=== PATIENT | female | born 1985 | race Caucasian/White ===

== ENCOUNTER 2020-12-13 11:45 | Emergency (ER) | payer OTHER, MEDICAID, SELFPAY ==
[2020-12-13 11:48] VITALS: BP 151/98; PULSE 133; RESP 18; TEMP 35.9; O2SAT 96
[2020-12-13] MEDS: LORazepam 2 MG/ML INJ 0.5 MG IV ×2 (12:16→13:11)
[2020-12-13] MEDS: SODIUM CHLORIDE 0.9% 1,000 ML 1000 ML IV ×2 (12:16→13:41)
[2020-12-13] MEDS: ONDANSETRON 4 MG/2 ML INJ IV (12:16)
[2020-12-13 12:21] LABS: Add Manual Diff / Slide Review NO; Basophils Absolute Auto 100 /uL (0-100); Basophils Percent Auto 1.4 % (0-2); Eosinophils Absolute Auto 0 /uL (0-450); Eosinophils Percent Auto 0.1 % (2-4); Hematocrit 40.1 % (36-46); Hemoglobin 13.5 g/dL (12.0-16.0); Lymphocytes Absolute Auto 600 /uL (1100-4500); Lymphocytes Percent Auto 10.3 % (25-40); Mean Corpuscular HGB Conc 33.6 % (30-36); Mean Corpuscular Hemoglobin 33.5 PG (26-34); Mean Corpuscular Volume 99.8 fL (80-100); Monocytes Absolute Auto 300 /uL (0-900); Monocytes Percent Auto 5.8 % (3-14); Neutrophils Absolute Auto 4700 /uL (1500-7000); Neutrophils Percent Auto 82.4 % (50-75); Platelet Count 159 X10^3/uL (150-400); Red Blood Cell Count 4.02 X10^6/uL (4.0-5.2); Red Cell Distribution Width 13.3 % (11.6-14.8); White Blood Cell Count 5.7 X10^3/uL (4.5-11.0)
[2020-12-13 12:24] LABS: Alanine Aminotransferase 39 IU/L (<35); Albumin Globulin Ratio 1.5 (1.0-2.8); Alkaline Phosphatase 73 U/L (38-126); Aspartate Aminotransferase 132 IU/L (14-36); BUN Creatinine Ratio 22.2 (6-22); Bilirubin Total 0.7 mg/dL (0.2-1.3); Blood Urea Nitrogen 10 mg/dL (7-17); Calcium 8.7 mg/dL (8.4-10.2); Carbon Dioxide 25 mmol/L (22-32); Chloride 100 mmol/L (98-107); Estimated Glomerular Filt Rate > 60.0 mL/min (>60); Globulin 3.3 g/dL (1.7-4.1); Glucose 110 mg/dL (70-100); HEMOLYSIS 16 (0-50); Lipase 276 U/L (23-300); Potassium 3.6 mmol/L (3.4-5.1); Sodium 138 mmol/L (137-145); Total Protein 8.3 g/dL (6.3-8.2)
--- NOTE | 2020-12-13 13:29 | ED_ITS ---
HPI - Alcohol <Jeremias Valerio PA-C - Last Filed: 12/13/20 15:37> General Chief Complaint: Toxicology Problem Stated Complaint: Alcohol withdrawal Time Seen by Provider: 12/13/20 12:24 History of Present Illness HPI narrative: Brenda presents today with her mother for chief complaint of alcohol withdrawal. She reports that her last drink of alcohol was last night. She has been drinking approximately a half a 5th of vodka daily for the last few months. She is scheduled to go in to detox and rehab later this week to get clean. She reports feeling a bit jittery and nauseous. She denies any chest pain, difficulty breathing, abdominal pain, diarrhea, constipation, cough or any other acute concerns or complaints at this time. Related Data Previous Rx's Medication Instructions Recorded lorazepam 1 mg tablet 1 mg PO TID PRN #14 tab 12/13/20 Allergies Allergy/AdvReac Type Severity Reaction Status Date / Time No Known Drug Allergies Allergy Verified 12/13/20 11:51 Review of Systems <Jeremias Valerio PA-C - Last Filed: 12/13/20 15:37> Review of Systems Narrative: As per HPI Patient History <Jeremias Valerio PA-C - Last Filed: 12/13/20 15:37> Social History Smoking Status: Never smoker Smoking Status: Never smoker alcohol intake frequency: 3 or more drinks per day Substance Use Type: does not use Exam <Jeremias Valerio PA-C - Last Filed: 12/13/20 15:37> Narrative Exam Narrative: Exam Narrative: Const General: cooperative, healthy appearing, comfortable, no acute distress, well developed and well groomed Nutritional Appearance: average body habitus Orientation: alert and oriented x3 HENMT Head: normal to inspection and atraumatic Ears: hearing grossly normal bilaterally Nose: external nose normal and nares normal Face and sinus: normal facial exam Neck Neck: normal visual inspection and supple Resp Effort & Inspection: normal respiratory effort, able to speak in complete sentences, no audible wheezes, not labored, no nasal flaring and no respiratory distress, clear to auscultation Cardiac Tachycardic rate, regular rhythm, no murmurs, rubs, or gallops GI Normal bowel sounds, nontender to palpation, no masses noted Neuro General: alert, oriented x3, gait normal, tone normal and moves all extremities, mild tremors bilateral hands Cognition: normal cognition Speech: speech normal Gait: normal gait Psych Appearance: grossly normal and well kempt Mental Status: mental status grossly normal Speech and Movement: speech and movement normal Mood: congruent mood Affect: normal affect Initial Vital Signs Initial Vital Signs: Vital Signs Temperature 96.7 F L 12/13/20 11:48 Pulse Rate 133 H 12/13/20 11:48 Respiratory Rate 18 12/13/20 11:48 Blood Pressure 151/98 H 12/13/20 11:48 Pulse Oximetry 96 12/13/20 11:48 <Tri Hickey DO - Last Filed: 12/18/20 00:29> Initial Vital Signs Initial Vital Signs: Vital Signs Temperature 96.7 F L 12/13/20 11:48 Pulse Rate 133 H 12/13/20 11:48 Respiratory Rate 18 12/13/20 11:48 Blood Pressure 151/98 H 12/13/20 11:48 Pulse Oximetry 96 12/13/20 11:48 Course <Jeremias Valerio PA-C - Last Filed: 12/13/20 15:37> Orders Ordered: Discontinued Medications Sodium Chloride (Normal Saline 0.9%) 1,000 mls @ 1,000 mls/hr IV BOLUS ONE Stop: 12/13/20 13:05 Last Infusion: 12/13/20 13:30 Dose: 0 mls/hr Documented by: Admin: 12/13/20 12:16 Dose: 1,000 mls/hr Documented by: NERI Sodium Chloride (Normal Saline 0.9%) 1,000 mls @ 1,000 mls/hr IV BOLUS ONE Stop: 12/13/20 14:35 Last Infusion: 12/13/20 15:32 Dose: 0 mls/hr Documented by: Admin: 12/13/20 13:41 Dose: 1,000 mls/hr Documented by: AMY Lorazepam (Lorazepam 2 Mg/Ml Inj) 0.5 mg IV NOW ONE Stop: 12/13/20 12:07 Last Admin: 12/13/20 12:16 Dose: 0.5 mg Documented by: NERI Lorazepam (Lorazepam 2 Mg/Ml Inj) 0.5 mg IV NOW ONE Stop: 12/13/20 13:10 Last Admin: 12/13/20 13:11 Dose: 0.5 mg Documented by: AMY Lorazepam (Lorazepam 2 Mg/Ml Inj) 1 mg IV NOW ONE Stop: 12/13/20 14:25 Last Admin: 12/13/20 14:36 Dose: 1 mg Documented by: GAYLA Ondansetron HCl (Ondansetron 4 Mg/2 Ml Inj) 4 mg IV NOW ONE Stop: 12/13/20 12:06 Last Admin: 12/13/20 12:16 Dose: 4 mg Documented by: NERI Vital Signs Vital signs: Vital Signs - 8 hr 12/13/20 11:48 12/13/20 14:33 Temperature 96.7 F L Pulse Rate 133 H 107 H Respiratory Rate 18 22 Blood Pressure 151/98 H 132/78 Pulse Oximetry 96 96 <Tri Hickey DO - Last Filed: 12/18/20 00:29> Orders Ordered: Discontinued Medications Sodium Chloride (Normal Saline 0.9%) 1,000 mls @ 1,000 mls/hr IV BOLUS ONE Stop: 12/13/20 13:05 Last Infusion: 12/13/20 13:30 Dose: 0 mls/hr Documented by: Admin: 12/13/20 12:16 Dose: 1,000 mls/hr Documented by: NERI Sodium Chloride (Normal Saline 0.9%) 1,000 mls @ 1,000 mls/hr IV BOLUS ONE Stop: 12/13/20 14:35 Last Infusion: 12/13/20 15:32 Dose: 0 mls/hr Documented by: Admin: 12/13/20 13:41 Dose: 1,000 mls/hr Documented by: AMY Lorazepam (Lorazepam 2 Mg/Ml Inj) 0.5 mg IV NOW ONE Stop: 12/13/20 12:07 Last Admin: 12/13/20 12:16 Dose: 0.5 mg Documented by: NERI Lorazepam (Lorazepam 2 Mg/Ml Inj) 0.5 mg IV NOW ONE Stop: 12/13/20 13:10 Last Admin: 12/13/20 13:11 Dose: 0.5 mg Documented by: AMY Lorazepam (Lorazepam 2 Mg/Ml Inj) 1 mg IV NOW ONE Stop: 12/13/20 14:25 Last Admin: 12/13/20 14:36 Dose: 1 mg Documented by: GAYLA Ondansetron HCl (Ondansetron 4 Mg/2 Ml Inj) 4 mg IV NOW ONE Stop: 12/13/20 12:06 Last Admin: 12/13/20 12:16 Dose: 4 mg Documented by: NERI Vital Signs Vital signs: Vital Signs - 8 hr 12/13/20 11:48 12/13/20 14:33 Temperature 96.7 F L Pulse Rate 133 H 107 H Respiratory Rate 18 22 Blood Pressure 151/98 H 132/78 Pulse Oximetry 96 96 MDM - Alcohol <Jeremias Valerio PA-C - Last Filed: 12/13/20 15:37> Lab Data Result diagrams: 12/13/20 11:55 12/13/20 11:55 Labs: Lab Results 12/13/20 12/13/20 12/13/20 Range/Units 11:55 11:55 14:10 WBC 5.7 (4.5-11.0) X10^3/uL RBC 4.02 (4.0-5.2) X10^6/uL Hgb 13.5 (12.0-16.0) g/dL Hct 40.1 (36-46) % MCV 99.8 (80-100) fL MCH 33.5 (26-34) PG MCHC 33.6 (30-36) % RDW 13.3 (11.6-14.8) % Plt Count 159 (150-400) X10^3/uL Neut % (Auto) 82.4 H (50-75) % Lymph % (Auto) 10.3 L (25-40) % [place] % (Auto) 5.8 (3-14) % Eos % (Auto) 0.1 L (2-4) % Baso % (Auto) 1.4 (0-2) % Neut # (Auto) 4700 (7430-7591) /uL Lymph # (Auto) 600 L (6089-7980) /uL [place] # (Auto) 300 (0-900) /uL Eos # (Auto) 0 (0-450) /uL Baso # (Auto) 100 (0-100) /uL Sodium 138 (137-145) mmol/L Potassium 3.6 (3.4-5.1) mmol/L Chloride 100 (98-107) mmol/L Carbon Dioxide 25 (22-32) mmol/L BUN 10 (7-17) mg/dL Creatinine 0.45 L (0.52-1.04) mg/dL Estimated GFR > 60.0 (>60) mL/min BUN/Creatinine Ratio 22.2 H (6-22) Glucose 110 H (70-100) mg/dL Calcium 8.7 (8.4-10.2) mg/dL Total Bilirubin 0.7 (0.2-1.3) mg/dL AST 132 H (14-36) IU/L ALT 39 H (<35) IU/L Alkaline Phosphatase 73 (38-126) U/L Total Protein 8.3 H (6.3-8.2) g/dL Albumin 5.0 (3.5-5.0) g/dL Globulin 3.3 (1.7-4.1) g/dL Albumin/Globulin Ratio 1.5 (1.0-2.8) Lipase 276 (23-300) U/L Urine RBC 1-5/hpf (0-5/HPF) Urine WBC 0-1/hpf (0-5/HPF) Ur Squamous Epith Cells 1-5 /hpf (0-5/HPF) Amorphous Sediment 1+ Urine Bacteria None seen (None) Ur Culture Indicated? Cult not indicated Point of Care Testing Test Results Negative Urine Dip Bedside Urine Glucose Negative Bedside Urine Bilirubin - Negative Bedside Urine Ketone - Negative Urine Specific [place] 1.020 Bedside Urine Occult Blood +/- Bedside Urine pH 6.5 Bedside Urine Protein + 30 Bedside Urine Urobilinogen - Negative Bedside Urine Nitrite - Negative Bedside Urine Leukocytes - Negative Esterase MDM Narrative Medical decision making narrative: Patient is well-appearing at this time. She has bilateral upper extremity tremors. She initially presented with tachycardia but that improved with fluid. She does not have any history seizures and has never been hospitalized for alcohol withdrawal in the past. Long standing histo ry of alcohol abuse. She is already scheduled for outpatient rehabilitation and is starting on Tuesday. Her mother is here and is able to support here. We discussed either bring her in for detoxification or trialing outpatient. Patient would prefer doing outpatient detox at this time. Given her clinical appearance and history, I think that that is appropriate. Strict ER return precautions were discussed with the patient. Patient verbalizes understanding and agrees to plan and has no further concerns at this time. Thank you A [id number] system was used with the dictation of this note. Please disregard any spelling or grammatical errors. <Tri Hickey, DO - Last Filed: 12/18/20 00:29> Lab Data Labs: Lab Results 12/13/20 12/13/20 12/13/20 Range/Units 11:55 11:55 14:10 WBC 5.7 (4.5-11.0) X10^3/uL RBC 4.02 (4.0-5.2) X10^6/uL Hgb 13.5 (12.0-16.0) g/dL Hct 40.1 (36-46) % MCV 99.8 (80-100) fL MCH 33.5 (26-34) PG MCHC 33.6 (30-36) % RDW 13.3 (11.6-14.8) % Plt Count 159 (150-400) X10^3/uL Neut % (Auto) 82.4 H (50-75) % Lymph % (Auto) 10.3 L (25-40) % [place] % (Auto) 5.8 (3-14) % Eos % (Auto) 0.1 L (2-4) % Baso % (Auto) 1.4 (0-2) % Neut # (Auto) 4700 (3463-5166) /uL Lymph # (Auto) 600 L (0392-0991) /uL [place] # (Auto) 300 (0-900) /uL Eos # (Auto) 0 (0-450) /uL Baso # (Auto) 100 (0-100) /uL Sodium 138 (137-145) mmol/L Potassium 3.6 (3.4-5.1) mmol/L Chloride 100 (98-107) mmol/L Carbon Dioxide 25 (22-32) mmol/L BUN 10 (7-17) mg/dL Creatinine 0.45 L (0.52-1.04) mg/dL Estimated GFR > 60.0 (>60) mL/min BUN/Creatinine Ratio 22.2 H (6-22) Glucose 110 H (70-100) mg/dL Calcium 8.7 (8.4-10.2) mg/dL Total Bilirubin 0.7 (0.2-1.3) mg/dL AST 132 H (14-36) IU/L ALT 39 H (<35) IU/L Alkaline Phosphatase 73 (38-126) U/L Total Protein 8.3 H (6.3-8.2) g/dL Albumin 5.0 (3.5-5.0) g/dL Globulin 3.3 (1.7-4.1) g/dL Albumin/Globulin Ratio 1.5 (1.0-2.8) Lipase 276 (23-300) U/L Urine RBC 1-5/hpf (0-5/HPF) Urine WBC 0-1/hpf (0-5/HPF) Ur Squamous Epith Cells 1-5 /hpf (0-5/HPF) Amorphous Sediment 1+ Urine Bacteria None seen (None) Ur Culture Indicated? Cult not indicated Point of Care Testing Test Results Negative Urine Dip Bedside Urine Glucose Negative Bedside Urine Bilirubin - Negative Bedside Urine Ketone - Negative Urine Specific [place] 1.020 Bedside Urine Occult Blood +/- Bedside Urine pH 6.5 Bedside Urine Protein + 30 Bedside Urine Urobilinogen - Negative Bedside Urine Nitrite - Negative Bedside Urine Leukocytes - Negative Esterase Discharge Plan Departure Patient Disposition: Home Clinical Impression: Alcohol withdrawal syndrome Qualifiers: Complication of substance-induced condition: uncomplicated Qualified Code(s): F10.230 - Alcohol dependence with withdrawal, uncomplicated Instructions: DI for Alcohol Use Disorder, DI for Alcohol Poisoning Activity Restrictions/Additional Instructions: It was very nice to meet you this afternoon. Please use the provided medications to help with your withdrawal symptoms. Please stay well hydrated. If your symptoms worsen in any way do not hesitate to return here to the emergency department. I wish you the best of luck with your outpatient rehabilitation. Thank you Jeremias Valerio PA-C Prescriptions: New lorazepam 1 mg tablet 1 mg PO TID PRN (Reason: withdrawal symptoms) Qty: 14 RF: 0 Referrals: Miscellaneous,Doctor, [Primary Care Provider] - <Tri Hickey DO - Last Filed: 12/18/20 00:29> Cosign ED Attending Izzyature Attestation: I was immediately available in the department for consultation. Documentation has been reviewed.
[2020-12-13 14:10] LABS: Amorphous Sediment Urine 1+; Bacteria Urine None Seen; RBC Urine 1-5/HPF (0-5/HPF); Squamous Epithelial Cell Urine 1-5 /HPF (0-5/HPF); WBC Urine 0-1/HPF (0-5/HPF)
[2020-12-13 14:11] LABS: Culture Indicated Urine Cult Not Indicated
[2020-12-13 14:33] VITALS: BP 132/78; PULSE 107; RESP 22; O2SAT 96
[2020-12-13] MEDS: LORazepam 2 MG/ML INJ 1 MG IV (14:36)
== END 2020-12-13 15:36 | disposition home or self-care (01) ==
PROVIDERS: Emergency Provider Physician Assistant
DX: F10.230 Alcohol dependence with withdrawal, uncomplicated (principal); R11.0 Nausea
CPT/HCPCS: 36415; 80053; 81003; 81015; 81025; 83690; 85025; 96361; 96374; 96375; 96376; 99284; J2060; J2405

== ENCOUNTER 2021-02-14 13:31 | Emergency (ER) | payer OTHER, MEDICAID, SELFPAY ==
[2021-02-14 14:14] VITALS: BP 128/93; PULSE 127; RESP 18; TEMP 36.4; O2SAT 98; BMI 21.9
[2021-02-14 14:49] LABS: RBC Urine None Seen (0-5/HPF); WBC Urine 0-1/HPF (0-5/HPF)
[2021-02-14 14:50] LABS: Amorphous Sediment Urine 1+; Bacteria Urine None Seen; Culture Indicated Urine Cult Not Indicated
[2021-02-14 14:57] LABS: UR Morphine/Opiate cutoff 300 Negative (Negative); Ur Creatinine Normal (Normal); Ur Specific Gravity Normal (Normal); Urine Amphetamines Negative (Negative); Urine Barbiturates Negative (Negative); Urine Benzodiazepines Negative (Negative); Urine Cocaine Negative (Negative); Urine MDMA Negative (Negative); Urine Methadone Negative (Negative); Urine Methamphetamines Negative (Negative); Urine Oxycodone Negative (Negative); Urine Phencyclidine Negative (Negative); Urine Tetrahydrocannabinol Positive (Negative); Urine Tricyclic Antidepressant Negative (Negative); Urine pH Normal (Normal)
--- NOTE | 2021-02-14 16:12 | ED.ALCOHOL ---
HPI - Alcohol <HUNTER Lobo - Last Filed: 02/14/21 20:07> General Chief Complaint: Toxicology Problem Stated Complaint: in patient detox, Time Seen by Provider: 02/14/21 16:03 Source: patient Mode of arrival: Ambulatory History of Present Illness HPI narrative: 35-year-old female presents to the emergency department today seeking inpatient detox for alcohol abuse. Patient reports she drinks 1/5 of liquor each day, she is experiencing withdrawal at this time. She denies any history of seizures. She reports that she is anxious, shaky, and nauseated. She denies any pain, vomiting, or any other complaint at this time. She reports that she did drink this morning, does not remember what time her last drink was. Patient denies any fever, chest pain, shortness of breath, or any illness. Patient is seeking treatment for alcohol abuse and has been to inpatient treatment in the past. Any audiovisual hallucinations, denies any suicidal or homicidal ideation. Chronic alcohol use: Yes Previous visits for alcohol intoxication: Yes Recent trauma: No Related Data Previous Rx's Medication Instructions Recorded lorazepam 1 mg tablet 1 mg PO TID PRN #14 tab 12/13/20 Allergies Allergy/AdvReac Type Severity Reaction Status Date / Time No Known Drug Allergies Allergy Verified 02/14/21 14:18 Review of Systems <HUNTER Lobo - Last Filed: 02/14/21 20:07> Review of Systems Narrative: General: denies fever, chills, reports shaking, currently withdrawing, mildly anxious Head/Neck: denies headache, neck pain Eyes: denies visual changes, eye pain Cardio: denies chest pain, palpitations Respiratory: denies shortness of breath, cough GI: denies abdominal pain, vomiting, or diarrhea endorses mild nausea : denies dysuria, hematuria MSK: denies joint pain, muscle weakness Skin: denies rash, itching Neuro: denies numbness, tingling Patient History <HUNTER Lobo - Last Filed: 02/14/21 20:07> Social History Smoking Status: Never smoker Smoking Status: Never smoker alcohol intake frequency: 3 or more drinks per day Alcohol type: hard liquor Substance Use Type: marijuana Exam <HUNTER Lobo - Last Filed: 02/14/21 20:07> Narrative Exam Narrative: Independently reviewed vitals signs and nursing notes. General: Awake, alert, nontoxic, no cardiorespiratory distress, tremulous, Head/Neck: Atraumatic, neck full range of motion Eyes: EOMI, conjunctiva normal Nose: nares patent, no rhinorrhea Mouth/Throat: moist mucus membranes, posterior pharynx normal, no oral lesions Cardio: Sinus Tachycardia with regular rhythm, no peripheral edema patient's heart rate reduced after 1 L saline and p.o. fluids Respiratory: respirations unlabored without wheezing, stridor, or rales. No retractions. GI: Abdomen soft, nontender to palpation MSK: Moves all extremities, neurovascularly intact Skin: Normal capillary refill, no rash Neuro: Normal speech and cognition, normal gait Initial Vital Signs Initial Vital Signs: Vital Signs Temperature 97.6 F 02/14/21 14:14 Pulse Rate 127 H 02/14/21 14:14 Respiratory Rate 18 02/14/21 14:14 Blood Pressure 128/93 H 02/14/21 14:14 Pulse Oximetry 98 02/14/21 14:14 Course <HUNTER Lobo - Last Filed: 02/14/21 20:07> Orders Ordered: Discontinued Medications Sodium Chloride (Normal Saline 0.9%) 1,000 mls @ 1,000 mls/hr IV BOLUS PRN PRN Reason: Fluid replacement Last Infusion: 02/14/21 18:48 Dose: 0 mls/hr Documented by: Admin: 02/14/21 16:20 Dose: 1,000 mls/hr Documented by: AMY Lorazepam (Lorazepam 2 Mg/Ml Inj) 2 mg IV NOW ONE Stop: 02/14/21 16:08 Last Admin: 02/14/21 16:20 Dose: 2 mg Documented by: AMY Lorazepam (Lorazepam 2 Mg/Ml Inj) 2 mg IV Q1H PRN PRN Reason: Alcohol Withdrawal Multivitamins (Multivitamin 1 Tablet) 1 tab PO NOW ONE Stop: 02/14/21 16:08 Last Admin: 02/14/21 16:21 Dose: 1 tab Documented by: AMY Ondansetron HCl (Ondansetron 4 Mg/2 Ml Inj) 4 mg IV NOW ONE Stop: 02/14/21 16:15 Last Admin: 02/14/21 16:20 Dose: 4 mg Documented by: AMY Vital Signs Vital signs: Vital Signs - 8 hr 02/14/21 14:14 02/14/21 18:48 Temperature 97.6 F Pulse Rate 127 H 107 H Respiratory Rate 18 Blood Pressure 128/93 H 122/71 Pulse Oximetry 98 97 MDM - Alcohol <HUNTER Lobo - Last Filed: 02/14/21 20:07> Lab Data Result diagrams: 02/14/21 16:00 02/14/21 16:00 Labs: Lab Results 02/14/21 02/14/21 02/14/21 Range/Units 13:48 13:48 16:00 WBC 4.8 (4.5-11.0) X10^3/uL RBC 4.15 (4.0-5.2) X10^6/uL Hgb 14.4 (12.0-16.0) g/dL Hct 42.9 (36-46) % MCV 103.5 H (80-100) fL MCH 34.8 H (26-34) PG MCHC 33.6 (30-36) % RDW 15.1 H (11.6-14.8) % Plt Count 155 (150-400) X10^3/uL Neut % (Auto) 85.7 H (50-75) % Lymph % (Auto) 10.6 L (25-40) % [place] % (Auto) 2.9 L (3-14) % Eos % (Auto) 0.0 L (2-4) % Baso % (Auto) 0.8 (0-2) % Neut # (Auto) 4200 (1701-4842) /uL Lymph # (Auto) 500 L (1166-5179) /uL [place] # (Auto) 100 (0-900) /uL Eos # (Auto) 0 (0-450) /uL Baso # (Auto) 0 (0-100) /uL Sodium (137-145) mmol/L Potassium (3.4-5.1) mmol/L Chloride (98-107) mmol/L Carbon Dioxide (22-32) mmol/L BUN (7-17) mg/dL Creatinine (0.52-1.04) mg/dL Estimated GFR (>60) mL/min BUN/Creatinine Ratio (6-22) Glucose (70-100) mg/dL Calcium (8.4-10.2) mg/dL Total Bilirubin (0.2-1.3) mg/dL AST (14-36) IU/L ALT (<35) IU/L Alkaline Phosphatase (38-126) U/L Total Protein (6.3-8.2) g/dL Albumin (3.5-5.0) g/dL Globulin (1.7-4.1) g/dL Albumin/Globulin Ratio (1.0-2.8) TSH (0.47-4.68) uIU/mL Free T4 (0.78-2.19) ng/dL Urine RBC None seen (0-5/HPF) Urine WBC 0-1/hpf (0-5/HPF) Amorphous Sediment 1+ Urine Bacteria None seen (None) Ur Culture Indicated? Cult not indicated Salicylates (<20) mg/dL U Opiates 300ng/mL cut Negative (Negative) Ur Oxycodone Screen Negative (Negative) Urine Methadone Screen Negative (Negative) Acetaminophen (10-30) ug/mL Ur Barbiturates Screen Negative (Negative) U Tricyclic Antidepress Negative (Negative) Ur Phencyclidine Scrn Negative (Negative) Ur Amphetamines Screen Negative (Negative) U Methamphetamines Scrn Negative (Negative) Ur MDMA Scrn (Ecstasy) Negative (Negative) U Benzodiazepines Scrn Negative (Negative) Urine Cocaine Screen Negative (Negative) U Marijuana (THC) Screen Positive H (Negative) Ethyl Alcohol ( - 10) mg/dL SARS-CoV-2 (PCR) (Negative) 02/14/21 02/14/21 02/14/21 Range/Units 16:00 16:00 16:00 WBC (4.5-11.0) X10^3/uL RBC (4.0-5.2) X10^6/uL Hgb (12.0-16.0) g/dL Hct (36-46) % MCV (80-100) fL MCH (26-34) PG MCHC (30-36) % RDW (11.6-14.8) % Plt Count (150-400) X10^3/uL Neut % (Auto) (50-75) % Lymph % (Auto) (25-40) % [place] % (Auto) (3-14) % Eos % (Auto) (2-4) % Baso % (Auto) (0-2) % Neut # (Auto) (1469-5153) /uL Lymph # (Auto) (2288-9882) /uL [place] # (Auto) (0-900) /uL Eos # (Auto) (0-450) /uL Baso # (Auto) (0-100) /uL Sodium 141 (137-145) mmol/L Potassium 4.8 (3.4-5.1) mmol/L Chloride 103 (98-107) mmol/L Carbon Dioxide 11 L (22-32) mmol/L BUN 15 (7-17) mg/dL Creatinine 0.69 (0.52-1.04) mg/dL Estimated GFR > 60.0 (>60) mL/min BUN/Creatinine Ratio 21.7 (6-22) Glucose 69 L (70-100) mg/dL Calcium 9.3 (8.4-10.2) mg/dL Total Bilirubin 0.8 (0.2-1.3) mg/dL AST 169 H (14-36) IU/L ALT 32 (<35) IU/L Alkaline Phosphatase 77 (38-126) U/L Total Protein 9.5 H (6.3-8.2) g/dL Albumin 5.5 H (3.5-5.0) g/dL Globulin 4.0 (1.7-4.1) g/dL Albumin/Globulin Ratio 1.4 (1.0-2.8) TSH 1.03 (0.47-4.68) uIU/mL Free T4 0.73 L (0.78-2.19) ng/dL Urine RBC (0-5/HPF) Urine WBC (0-5/HPF) Amorphous Sediment Urine Bacteria (None) Ur Culture Indicated? Salicylates < 1.0 (<20) mg/dL U Opiates 300ng/mL cut (Negative) Ur Oxycodone Screen (Negative) Urine Methadone Screen (Negative) Acetaminophen < 10 L (10-30) ug/mL Ur Barbiturates Screen (Negative) U Tricyclic Antidepress (Negative) Ur Phencyclidine Scrn (Negative) Ur Amphetamines Screen (Negative) U Methamphetamines Scrn (Negative) Ur MDMA Scrn (Ecstasy) (Negative) U Benzodiazepines Scrn (Negative) Urine Cocaine Screen (Negative) U Marijuana (THC) Screen (Negative) Ethyl Alcohol 254 H ( - 10) mg/dL SARS-CoV-2 (PCR) Negative (Negative) Point of Care Testing Glucose POC 71 Urine Dip Bedside Urine Glucose Negative Bedside Urine Bilirubin - Negative Bedside Urine Ketone +++ 80 Urine Specific [employer] 1.030 Bedside Urine Occult Blood +++ Bedside Urine pH 6.0 Bedside Urine Protein +++ 300 Bedside Urine Urobilinogen - Negative Bedside Urine Nitrite - Negative Bedside Urine Leukocytes - Negative Esterase MDM Narrative Medical decision making narrative: 35-year-old female presented to the emergency department seeking medical clearance for inpatient detox for alcohol abuse. Patient presented in alcohol withdrawal with moderate tremors, level is 254, drug screen was positive for THC, COVID test was negative on PCR, no other findings on her toxicology screening, lab work was relatively unremarkable otherwise, no electrolyte abnormalities, her glucose was 69 initially but patient was able to drink 2 cups of apple juice, kept it down, and tolerated p.o. fluids afterwards. Her AST was 169 today on previous exam in December it was 130 edema. UA was negative for bacteria. At this point patient is clinically sober, appropriate for admission to inpatient detox, her tremors are markedly improved, patient is no longer nauseated, she is comfortable and at baseline for herself. Patient received a total of 2 mg of lorazepam while she was in the emergency department and did not develop any worsening of her alcohol withdrawal symptoms. She was alert and oriented for her stay, did not have any audiovisual hallucinations, was cooperative, pleasant, and seeking alcohol treatment. Discharge Plan Departure Patient Disposition: Home Clinical Impression: Alcohol withdrawal syndrome Instructions: DI for Alcohol Use Disorder Activity Restrictions/Additional Instructions: *You have been diagnosed with alcohol use disorder with alcohol withdrawal. Please go to inpatient detox as arranged for you, this can help save your life and get you on the right track to health. It was a pleasure to meet you, I hope that you feel better, please try and eat something before going. *What to do: *Please continue to take your regular medications as directed. [ ] New medication prescriptions sent to your pharmacy: [ ] [ ] New medication written as a paper prescription [x ] No new medications given *Please follow up with your primary care provider in 2-3 days, call for an appointment. Let them know you were seen in the Emergency Department and that we ask that you be seen in follow up. We will electronically transmit a record of today's note if your PCP is in our system *If you do not have a primary care provider please contact the [facility] Resource line at [phone]. They will ask some questions about your medical history and help get you set up with a doctor in the community. *Return to Emergency Department if you should have any new, worsening or concerning symptoms, such as [fever greater than 101F, chills, worsening pain, persistent vomiting or other bothersome symptoms] Prescriptions: No Action lorazepam 1 mg tablet 1 mg PO TID PRN (Reason: withdrawal symptoms) Qty: 14 0RF Referrals: Miscellaneous,Doctor, MD [Primary Care Provider] -
[2021-02-14 16:15] LABS: Add Manual Diff / Slide Review NO; Basophils Absolute Auto 0 /uL (0-100); Basophils Percent Auto 0.8 % (0-2); Eosinophils Absolute Auto 0 /uL (0-450); Hematocrit 42.9 % (36-46); Hemoglobin 14.4 g/dL (12.0-16.0); Lymphocytes Absolute Auto 500 /uL (1100-4500); Lymphocytes Percent Auto 10.6 % (25-40); Mean Corpuscular HGB Conc 33.6 % (30-36); Mean Corpuscular Hemoglobin 34.8 PG (26-34); Mean Corpuscular Volume 103.5 fL (80-100); Monocytes Absolute Auto 100 /uL (0-900); Monocytes Percent Auto 2.9 % (3-14); Neutrophils Absolute Auto 4200 /uL (1500-7000); Neutrophils Percent Auto 85.7 % (50-75); Platelet Count 155 X10^3/uL (150-400); Red Blood Cell Count 4.15 X10^6/uL (4.0-5.2); Red Cell Distribution Width 15.1 % (11.6-14.8); White Blood Cell Count 4.8 X10^3/uL (4.5-11.0)
[2021-02-14] MEDS: ONDANSETRON 4 MG/2 ML INJ IV (16:20)
[2021-02-14] MEDS: SODIUM CHLORIDE 0.9% 1,000 ML 1000 ML IV (16:20)
[2021-02-14] MEDS: LORazepam 2 MG/ML INJ IV (16:20)
[2021-02-14] MEDS: MULTIVITAMIN 1 TABLET 1 TAB PO (16:21)
[2021-02-14 16:28] LABS: Acetaminophen < 10 ug/mL (10-30); Alanine Aminotransferase 32 IU/L (<35); Albumin 5.5 g/dL (3.5-5.0); Albumin Globulin Ratio 1.4 (1.0-2.8); Alkaline Phosphatase 77 U/L (38-126); Aspartate Aminotransferase 169 IU/L (14-36); BUN Creatinine Ratio 21.7 (6-22); Bilirubin Total 0.8 mg/dL (0.2-1.3); Blood Urea Nitrogen 15 mg/dL (7-17); Calcium 9.3 mg/dL (8.4-10.2); Carbon Dioxide 11 mmol/L (22-32); Chloride 103 mmol/L (98-107); Estimated Glomerular Filt Rate > 60.0 mL/min (>60); Ethanol (ETOH) 254 mg/dL; Glucose 69 mg/dL (70-100); HEMOLYSIS 22 (0-50); Potassium 4.8 mmol/L (3.4-5.1); Salicylate < 1.0 mg/dL (<20); Sodium 141 mmol/L (137-145); Total Protein 9.5 g/dL (6.3-8.2)
[2021-02-14 16:44] LABS: Free T4, Direct Thyroxine 0.73 ng/dL (0.78-2.19)
[2021-02-14 16:58] LABS: Thyroid Stimulating Hormone 1.03 uIU/mL (0.47-4.68)
[2021-02-14 17:17] LABS: COVID19 - ADMIT (NP swab/PCR) Negative (Negative)
[2021-02-14 18:48] VITALS: BP 122/71; PULSE 107; O2SAT 97
== END 2021-02-14 18:49 | disposition home or self-care (01) ==
PROVIDERS: Emergency Medicine; Emergency Provider Nurse Practitioner Critical Care Medicine
DX: F10.239 Alcohol dependence with withdrawal, unspecified (principal); Y90.8 Blood alcohol level of 240 mg/100 ml or more; Z20.822 Contact with and (suspected) exposure to COVID-19
CPT/HCPCS: 36415; 80053; 80305; 80320; 80329; 81003; 81015; 82962; 84439; 84443; 85025; 87635; 96361; 96374; 96375; 99284; C9803; G0480; J2060; J2405

== ENCOUNTER 2021-03-29 13:13 | Emergency (ER) | payer OTHER, MEDICAID, SELFPAY ==
[2021-03-29] VITALS (31 sets, daily range): BP systolic 114–169; BP diastolic 63–81; PULSE 85–125; RESP 16–24; TEMP 36.1; O2SAT 90–98
--- NOTE | 2021-03-29 14:33 | ED.GENADULT ---
HPI - General Adult <Skylar Yoo MD - Last Filed: 04/05/21 06:33> General Chief complaint: Toxicology Problem Stated complaint: Withdrawls Time Seen by Provider: 03/29/21 13:33 Source: patient and family Mode of arrival: Ambulatory History of Present Illness HPI narrative: 35-year-old woman with significant alcohol use disorder presents with signs and symptoms of significant withdrawal requesting help with her physical symptoms as well as consideration for detox. She has been having issues in trying to stop drinking for a number of months now with 6 visits to various emergency departments in the last 4 months. She has had to detox days but has not recently done any inpatient treatment. She has had the 30 day treatment previously. She describes drinking a 5th of whiskey a day. She is accompanied by her significant other. She describes no additional drug use. She states that she just finished her last menstrual cycle. At this point she is having significant withdrawal symptoms with significant vomiting and tremor. She is not having any hallucinations at this time. She describes mild diffuse abdominal pain subtle headache. She denies overt chest pain palpitations. Related Data Previous Rx's Medication Instructions Recorded lorazepam 1 mg tablet 1 mg PO TID PRN #14 tab 12/13/20 Allergies Allergy/AdvReac Type Severity Reaction Status Date / Time No Known Drug Allergies Allergy Verified 02/14/21 14:18 Review of Systems <Skylar Yoo MD - Last Filed: 04/05/21 06:33> Review of Systems Narrative: Remainder of complete review of systems is otherwise unremarkable except for that included in the HPI. Patient History <Skylar Yoo MD - Last Filed: 04/05/21 06:33> Medical History (Updated 03/29/21 @ 15:08 by Skylar Yoo MD) Alcohol use disorder Social History Smoking Status: Never smoker Smoking Status: Never smoker alcohol intake frequency: 3 or more drinks per day Alcohol type: hard liquor Substance Use Type: marijuana Exam <Skylar Yoo MD - Last Filed: 04/05/21 06:33> Initial Vital Signs Initial Vital Signs: Vital Signs Temperature 97.0 F L 03/29/21 13:23 Pulse Rate 103 H 03/29/21 13:23 Respiratory Rate 24 03/29/21 13:23 Blood Pressure 124/75 03/29/21 13:23 Pulse Oximetry 97 03/29/21 13:23 General: In significant alcohol withdrawal, chronically ill-appearing. Able to give a complete and coherent history. HEENT: drt mucous membranes, normal sclera with reactive pupils, Respiratory: Lungs are clear to auscultation, no wheezing no rales no rhonchi. Full and symmetrical air movement Cardiac: Tachycardic but otherwise Regular rate and rhythm no murmurs no bruits Abdomen: Soft, mild diffuse tenderness without rebound or guarding, good bowel tones, no flank pain Skin: Pale, spider angiomas appreciated Neurologic: Significant tremor but cognitively appropriate and moving all extremities Extremities: No trauma, no lower extremity edema Psych: Cooperative, appropriate insight and affect, no auditory or visual hallucinations CIWA=16 on initial exam Course <Skylar Yoo MD - Last Filed: 04/05/21 06:33> Orders Ordered: Discontinued Medications Sodium Chloride (Normal Saline 0.9%) 1,000 mls @ 1,000 mls/hr IV BOLUS ONE Stop: 03/29/21 15:22 Last Infusion: 03/29/21 15:46 Dose: 1,000 mls/hr Documented by: [email or web address] Admin: 03/29/21 14:38 Dose: 1,000 mls/hr Documented by: [email or web address] Thiamine HCl 100 mg/ Dextrose 51 mls @ 204 mls/hr IV NOW ONE Stop: 03/29/21 14:24 Last Infusion: 03/29/21 15:48 Dose: 0 mls/hr Documented by: [email or web address] Admin: 03/29/21 15:19 Dose: 204 mls/hr Documented by: [email or web address] Lorazepam (Lorazepam 2 Mg/Ml Inj) 2 mg IV NOW ONE Stop: 03/29/21 14:24 Last Admin: 03/29/21 14:38 Dose: 2 mg Documented by: [email or web address] Lorazepam (Lorazepam 2 Mg/Ml Inj) 2 mg IV NOW ONE Stop: 03/29/21 15:14 Last Admin: 03/29/21 15:19 Dose: 2 mg Documented by: [email or web address] Lorazepam (Lorazepam 2 Mg/Ml Inj) 1 mg IV NOW ONE Stop: 03/29/21 21:10 Last Admin: 03/29/21 21:13 Dose: 1 mg Documented by: NICHOLAS Metoclopramide HCl (Metoclopramide 10 Mg/2 Ml Inj) 10 mg IV NOW ONE Stop: 03/29/21 14:29 Last Admin: 03/29/21 14:38 Dose: 10 mg Documented by: NLOOSE Vital Signs Vital signs: Vital Signs - 8 hr 03/29/21 16:18 03/29/21 16:30 03/29/21 16:45 Pulse Rate 99 H 94 H 94 H Respiratory Rate 22 20 17 Blood Pressure 114/64 116/63 117/67 Pulse Oximetry 96 94 96 03/29/21 17:00 03/29/21 17:15 03/29/21 17:30 Pulse Rate 101 H 93 H 95 H Respiratory Rate 22 20 21 Blood Pressure 115/65 122/68 120/73 Pulse Oximetry 96 96 96 03/29/21 17:45 03/29/21 18:00 03/29/21 18:15 Pulse Rate 94 H 95 H 95 H Respiratory Rate 17 17 17 Blood Pressure 119/73 121/72 125/76 Pulse Oximetry 97 94 97 03/29/21 18:31 03/29/21 18:37 03/29/21 19:00 Pulse Rate 125 H 100 H 92 H Respiratory Rate 23 16 17 Blood Pressure 118/69 Pulse Oximetry 90 L 96 97 03/29/21 19:30 03/29/21 20:00 03/29/21 20:30 Pulse Rate 95 H 93 H 92 H Respiratory Rate 19 17 18 Blood Pressure Pulse Oximetry 97 95 96 03/29/21 21:00 03/29/21 21:30 03/29/21 22:00 Pulse Rate 93 H 96 H 94 H Respiratory Rate 19 18 20 Blood Pressure Pulse Oximetry 96 96 97 03/29/21 22:02 03/29/21 22:03 03/29/21 22:30 Pulse Rate 96 H 96 H 99 H Respiratory Rate 20 17 17 Blood Pressure 124/81 124/81 Pulse Oximetry 96 98 97 Medical Decision Making <Skylar Yoo MD - Last Filed: 04/05/21 06:33> Lab Data Result diagrams: 03/29/21 13:55 03/29/21 13:55 Labs: Lab Results 03/29/21 03/29/21 03/29/21 Range/Units 13:55 13:55 15:06 WBC 5.6 (4.5-11.0) X10^3/uL RBC 3.81 L (4.0-5.2) X10^6/uL Hgb 13.5 (12.0-16.0) g/dL Hct 39.7 (36-46) % MCV 104.3 H (80-100) fL MCH 35.4 H (26-34) PG MCHC 33.9 (30-36) % RDW 14.1 (11.6-14.8) % Plt Count 192 (150-400) X10^3/uL Neut % (Auto) 90.8 H (50-75) % Lymph % (Auto) 4.9 L (25-40) % [place] % (Auto) 2.5 L (3-14) % Eos % (Auto) 0.1 L (2-4) % Baso % (Auto) 1.7 (0-2) % Neut # (Auto) 5100 (4037-1284) /uL Lymph # (Auto) 300 L (7998-8957) /uL [place] # (Auto) 100 (0-900) /uL Eos # (Auto) 0 (0-450) /uL Baso # (Auto) 100 (0-100) /uL Sodium 140 (137-145) mmol/L Potassium 4.1 (3.4-5.1) mmol/L Chloride 102 (98-107) mmol/L Carbon Dioxide 15 L (22-32) mmol/L BUN 14 (7-17) mg/dL Creatinine 0.65 (0.52-1.04) mg/dL Estimated GFR > 60.0 (>60) mL/min BUN/Creatinine Ratio 21.5 (6-22) Glucose 70 (70-100) mg/dL Calcium 9.0 (8.4-10.2) mg/dL Magnesium 1.9 (1.6-2.3) mg/dL Total Bilirubin 1.0 (0.2-1.3) mg/dL AST 190 H (14-36) IU/L ALT 58 H (<35) IU/L Alkaline Phosphatase 64 (38-126) U/L Total Protein 9.0 H (6.3-8.2) g/dL Albumin 5.3 H (3.5-5.0) g/dL Globulin 3.7 (1.7-4.1) g/dL Albumin/Globulin Ratio 1.4 (1.0-2.8) Lipase 227 (23-300) U/L Urine Color Urine Appearance Urine pH (4.5-8.0) Ur Specific [place] (1.000-1.035) Urine Protein (Negative) Urine Glucose (UA) (Negative) g/dL Urine Ketones (NEGATIVE) Urine Occult Blood (Negative) Urine Nitrate (Negative) Urine Bilirubin (NEGATIVE) Urine Urobilinogen (0.2) E.U./dL Ur Leukocyte Esterase (NEGATIVE) Urine RBC (0-5/HPF) Urine WBC (0-5/HPF) Ur Squamous Epith Cells (0-5/HPF) Urine Bacteria (None) Ur Culture Indicated? U Opiates 300ng/mL cut (Negative) Ur Oxycodone Screen (Negative) Urine Methadone Screen (Negative) Ur Barbiturates Screen (Negative) U Tricyclic Antidepress (Negative) Ur Phencyclidine Scrn (Negative) Ur Amphetamines Screen (Negative) U Methamphetamines Scrn (Negative) Ur MDMA Scrn (Ecstasy) (Negative) U Benzodiazepines Scrn (Negative) Urine Cocaine Screen (Negative) U Marijuana (THC) Screen (Negative) Ethyl Alcohol 62 H ( - 10) mg/dL SARS-CoV-2 (PCR) Negative (Negative) 03/29/21 03/29/21 Range/Units 19:23 19:23 WBC (4.5-11.0) X10^3/uL RBC (4.0-5.2) X10^6/uL Hgb (12.0-16.0) g/dL Hct (36-46) % MCV (80-100) fL MCH (26-34) PG MCHC (30-36) % RDW (11.6-14.8) % Plt Count (150-400) X10^3/uL Neut % (Auto) (50-75) % Lymph % (Auto) (25-40) % [place] % (Auto) (3-14) % Eos % (Auto) (2-4) % Baso % (Auto) (0-2) % Neut # (Auto) (2954-5225) /uL Lymph # (Auto) (7367-4203) /uL [place] # (Auto) (0-900) /uL Eos # (Auto) (0-450) /uL Baso # (Auto) (0-100) /uL Sodium (137-145) mmol/L Potassium (3.4-5.1) mmol/L Chloride (98-107) mmol/L Carbon Dioxide (22-32) mmol/L BUN (7-17) mg/dL Creatinine (0.52-1.04) mg/dL Estimated GFR (>60) mL/min BUN/Creatinine Ratio (6-22) Glucose (70-100) mg/dL Calcium (8.4-10.2) mg/dL Magnesium (1.6-2.3) mg/dL Total Bilirubin (0.2-1.3) mg/dL AST (14-36) IU/L ALT (<35) IU/L Alkaline Phosphatase (38-126) U/L Total Protein (6.3-8.2) g/dL Albumin (3.5-5.0) g/dL Globulin (1.7-4.1) g/dL Albumin/Globulin Ratio (1.0-2.8) Lipase (23-300) U/L Urine Color Yellow Urine Appearance Clear Urine pH 5.5 (4.5-8.0) Ur Specific [place] >=1.030 H (1.000-1.035) Urine Protein 2+ H (Negative) Urine Glucose (UA) Trace H (Negative) g/dL Urine Ketones 3+ H (NEGATIVE) Urine Occult Blood 3+ H (Negative) Urine Nitrate Negative (Negative) Urine Bilirubin Negative (NEGATIVE) Urine Urobilinogen 0.2 (0.2) E.U./dL Ur Leukocyte Esterase Negative (NEGATIVE) Urine RBC 1-5/hpf (0-5/HPF) Urine WBC 1-5/hpf (0-5/HPF) Ur Squamous Epith Cells 1-5 /hpf (0-5/HPF) Urine Bacteria None seen (None) Ur Culture Indicated? Cult not indicated U Opiates 300ng/mL cut Negative (Negative) Ur Oxycodone Screen Negative (Negative) Urine Methadone Screen Negative (Negative) Ur Barbiturates Screen Negative (Negative) U Tricyclic Antidepress Negative (Negative) Ur Phencyclidine Scrn Negative (Negative) Ur Amphetamines Screen Negative (Negative) U Methamphetamines Scrn Negative (Negative) Ur MDMA Scrn (Ecstasy) Negative (Negative) U Benzodiazepines Scrn Positive H (Negative) Urine Cocaine Screen Negative (Negative) U Marijuana (THC) Screen Positive H (Negative) Ethyl Alcohol ( - 10) mg/dL SARS-CoV-2 (PCR) (Negative) Point of Care Testing Test Results Negative Urine Dip Bedside Urine Glucose Negative Bedside Urine Bilirubin - Negative Bedside Urine Ketone +++ 80 Urine Specific Hutch[place] 1.030 Bedside Urine Occult Blood +++ Bedside Urine pH 6.0 Bedside Urine Protein ++ 100 Bedside Urine Urobilinogen - Negative Bedside Urine Nitrite - Negative Bedside Urine Leukocytes - Negative Esterase Point of care testing: Point of Care Testing Test Results Negative Urine Dip Bedside Urine Glucose Negative Bedside Urine Bilirubin - Negative Bedside Urine Ketone +++ 80 Urine Specific [place] 1.030 Bedside Urine Occult Blood +++ Bedside Urine pH 6.0 Bedside Urine Protein ++ 100 Bedside Urine Urobilinogen - Negative Bedside Urine Nitrite - Negative Bedside Urine Leukocytes - Negative Esterase MDM Narrative Medical decision making narrative: 35-year-old patient with an ongoing history of alcohol use disorder who has been trying to quit over the last number of months. She comes in today looking for help with detox. Last drink was at 8:00 p.m. last night and blood alcohol level is at 67 this morning. Initial CIWA score was 16. Responded nicely to IV Ativan. She is re-evaluated at 3:00 p.m.. She is medically cleared at this point and still quite interested in going to detox. Will administer additional Ativan due to her continued symptoms. In admit COVID swab will be obtained. Talked with social work and they will contact rehab facility on [facility] to see if they have availability at this time. Has responded nicely to an additional 2 mg of Ativan. Is calling to do intake screening at [facility] Discharge Plan Departure Patient Disposition: Home Clinical Impression: Alcohol use disorder Activity Restrictions/Additional Instructions: Please present directly [facility] They are expecting you Prescriptions: No Action lorazepam 1 mg tablet 1 mg PO TID PRN (Reason: withdrawal symptoms) Qty: 14 0RF Referrals: Miscellaneous,DoctorMD [Primary Care Provider] - ED Sign-out <Skylar Yoo MD - Last Filed: 04/05/21 06:33> Cosign ED Attending Cosignature Attestation: I was immediately available in the department for consultation throughout this patient's visit. I agree with documentation as above. Skylar Yoo MD
[2021-03-29] MEDS: SODIUM CHLORIDE 0.9% 1,000 ML 1000 ML IV (14:38)
[2021-03-29] MEDS: LORazepam 2 MG/ML INJ IV ×2 (14:38→15:19)
[2021-03-29] MEDS: METOCLOPRAMIDE 10 MG/2 ML INJ IV (14:38)
[2021-03-29 14:40] LABS: Add Manual Diff / Slide Review NO; Basophils Absolute Auto 100 /uL (0-100); Basophils Percent Auto 1.7 % (0-2); Eosinophils Absolute Auto 0 /uL (0-450); Eosinophils Percent Auto 0.1 % (2-4); Hematocrit 39.7 % (36-46); Hemoglobin 13.5 g/dL (12.0-16.0); Lymphocytes Absolute Auto 300 /uL (1100-4500); Lymphocytes Percent Auto 4.9 % (25-40); Mean Corpuscular HGB Conc 33.9 % (30-36); Mean Corpuscular Hemoglobin 35.4 PG (26-34); Mean Corpuscular Volume 104.3 fL (80-100); Monocytes Absolute Auto 100 /uL (0-900); Monocytes Percent Auto 2.5 % (3-14); Neutrophils Absolute Auto 5100 /uL (1500-7000); Neutrophils Percent Auto 90.8 % (50-75); Platelet Count 192 X10^3/uL (150-400); Red Blood Cell Count 3.81 X10^6/uL (4.0-5.2); Red Cell Distribution Width 14.1 % (11.6-14.8); White Blood Cell Count 5.6 X10^3/uL (4.5-11.0)
[2021-03-29 14:48] LABS: Alanine Aminotransferase 58 IU/L (<35); Albumin 5.3 g/dL (3.5-5.0); Albumin Globulin Ratio 1.4 (1.0-2.8); Alkaline Phosphatase 64 U/L (38-126); Aspartate Aminotransferase 190 IU/L (14-36); BUN Creatinine Ratio 21.5 (6-22); Blood Urea Nitrogen 14 mg/dL (7-17); Carbon Dioxide 15 mmol/L (22-32); Chloride 102 mmol/L (98-107); Estimated Glomerular Filt Rate > 60.0 mL/min (>60); Ethanol (ETOH) 62 mg/dL; Globulin 3.7 g/dL (1.7-4.1); Glucose 70 mg/dL (70-100); HEMOLYSIS < 15 (0-50); Lipase 227 U/L (23-300); Magnesium 1.9 mg/dL (1.6-2.3); Potassium 4.1 mmol/L (3.4-5.1); Sodium 140 mmol/L (137-145)
[2021-03-29] MEDS: THIAMINE 100 MG in DEXTROSE 5 % IN WATER 50 ML 204 ML IV (15:19)
--- NOTE | 2021-03-29 15:28 | CM.SWNOTE ---
Patient is a 35 yo female who was admitted to [facility] ED on 03/29/21 for ETOH withdrawal. Pt has [employer] for insurance. Per ED MD, pt with hx of ETOH and seeking detox tx and requests [employer] Consult to help find detox for pt although pt requesting a different detox other than [facility] in [place]. SW called [facility] in [place] [phone] and confirmed they have a female detox bed available right now and they request pt call for phone intake and then fax medical clinicals to review prior to accepting. Due to time constraits of shift almost over, [employer] unable to meet bedside with pt for assessment but provided above information to ED RN, ED MD, and [facility] and they kindly will help pt make call to [facility] for intake and [facility] [employer] agreeable to fax clinicals for review if pt agreeable with [facility] after intake. MARISOL Lucero
--- NOTE | 2021-03-29 15:41 | PC.NURSE ---
Patient had a phone assessment with [facility] treatment facility in [place]. [phone]. [facility] requested medical records, which have been sent to fax [phone]. Stated that they would call back in 1-2 hours after a nurse reviewed the assessment information. Provider is aware of pending status.
[2021-03-29 15:51] LABS: COVID19 - ADMIT (NP swab/PCR) Negative (Negative)
--- NOTE | 2021-03-29 19:58 | PC.NURSE ---
pt resting quietly call vanegas in reach
[2021-03-29 20:39] LABS: Appearance Urine UA CLEAR; Bilirubin Urine UA NEGATIVE (NEGATIVE); Color Urine UA YELLOW; Glucose Urine UA TRACE g/dL (Negative); Ketones Urine UA 3+ (NEGATIVE); Leukocyte Esterase Urine UA NEGATIVE (NEGATIVE); Nitrite Urine UA NEGATIVE (Negative); Occult Blood Urine UA 3+ (Negative); Protein Urine UA 2+ (Negative); Specific Gravity Urine UA >=1.030 (1.000-1.035); Urobilinogen Urine UA 0.2 E.U./dL (0.2)
[2021-03-29 20:40] LABS: pH Urine UA 5.5 (4.5-8.0)
[2021-03-29 20:43] LABS: UR Morphine/Opiate cutoff 300 Negative (Negative); Ur Creatinine Normal (Normal); Ur Specific Gravity Normal (Normal); Urine Amphetamines Negative (Negative); Urine Barbiturates Negative (Negative); Urine Benzodiazepines Positive (Negative); Urine Cocaine Negative (Negative); Urine MDMA Negative (Negative); Urine Methadone Negative (Negative); Urine Methamphetamines Negative (Negative); Urine Oxycodone Negative (Negative); Urine Phencyclidine Negative (Negative); Urine Tetrahydrocannabinol Positive (Negative); Urine Tricyclic Antidepressant Negative (Negative); Urine pH Normal (Normal)
[2021-03-29 20:48] LABS: Bacteria Urine None Seen; Culture Indicated Urine Cult Not Indicated; RBC Urine 1-5/HPF (0-5/HPF); Squamous Epithelial Cell Urine 1-5 /HPF (0-5/HPF); WBC Urine 1-5/HPF (0-5/HPF)
[2021-03-29] MEDS: LORazepam 2 MG/ML INJ 1 MG IV (21:13)
--- NOTE | 2021-03-29 21:22 | PC.NURSE ---
updated pt on plan SO to come about 2229 to pick pt up to take her to rehab, pt verbalized understanding
--- NOTE | 2021-03-29 22:46 | PC.NURSE ---
pt ambulatory to bathroom without assistance waiting for ride
== END 2021-03-29 23:46 | disposition home or self-care (01) ==
PROVIDERS: Emergency Medicine; Emergency Provider Emergency Medicine
DX: F10.129 Alcohol abuse with intoxication, unspecified (principal); Y90.3 Blood alcohol level of 60-79 mg/100 ml; Z20.822 Contact with and (suspected) exposure to COVID-19
CPT/HCPCS: 36415; 80053; 80305; 80320; 81001; 81003; 81025; 83690; 83735; 85025; 87635; 96365; 96375; 96376; 99284; C9803; J2060; J2765

== ENCOUNTER 2022-08-16 19:05 | Observation (INO) | payer OTHER, MEDICAID, SELFPAY ==
[2022-08-16] VITALS (11 sets, daily range): BP systolic 100–129; BP diastolic 69–90; PULSE 93–120; RESP 18–21; TEMP 37.1; O2SAT 95–100; BMI 21.0
--- NOTE | 2022-08-16 20:27 | ED_ITS ---
HPI - General Adult <Chris Wheeler DO - Last Filed: 08/17/22 17:58> General Chief complaint: Toxicology Problem Stated complaint: ALCOHOL WITHDRAWEL Time Seen by Provider: 08/16/22 20:19 Source: patient and family Mode of arrival: Wheelchair History of Present Illness HPI narrative: Patient is a 36-year-old female. Who has a known history of alcohol abuse. Has withdrawn from alcohol in the past. Has had seizure activity because of alcohol withdrawal in the past. Was recently at [facility] for alcohol intoxication and wanting detox however after sobering up in the emergency department the patient left without going to detox or rehab. She is here with her mother and boyfriend. She did come voluntarily this evening. She does drink a 5th of whiskey on a daily basis. Her last drink was just prior to coming here to the ER. Patient is seeking help with alcohol abuse. Denies any other symptoms. Related Data Previous Rx's Medication Instructions Recorded lorazepam 1 mg tablet 1 mg PO TID PRN withdrawal 12/13/20 symptoms #14 tabs Allergies Allergy/AdvReac Type Severity Reaction Status Date / Time No Known Drug Allergies Allergy Verified 08/16/22 19:20 Review of Systems <Chris Wheeler DO - Last Filed: 08/17/22 17:58> Cardiovascular Cardiovascular: Denies chest pain and Denies dyspnea Respiratory Respiratory: Denies dyspnea Gastrointestinal Gastrointestinal: Denies abdominal pain, Denies nausea and Denies vomiting Patient History <Chris Wheeler DO - Last Filed: 08/17/22 17:58> Medical History Alcohol use disorder Social History household members: family Smoking Status: Current some day smoker alcohol intake: current Smoking Status: Current some day smoker tobacco type: vaping alcohol intake frequency: 3 or more drinks per day Alcohol type: hard liquor Substance Use Type: does not use and former substance user Exam <DO Roderick Gonzalez Last Filed: 08/17/22 17:58> Initial Vital Signs Initial Vital Signs: Vital Signs Temperature 98.8 F 08/16/22 19:17 Pulse Rate 120 H 08/16/22 19:17 Respiratory Rate 18 08/16/22 19:17 Blood Pressure 124/87 08/16/22 19:17 Pulse Oximetry 95 08/16/22 19:17 Oxygen Delivery Method Room Air 08/16/22 19:17 Const General: cooperative and No ill appearing HENMT Head: normal to inspection and normocephalic Resp Effort & Inspection: normal respiratory effort Cardio Rate: regular rate GI Inspection: non-distended Extrem General: normal to inspection Psych Other: Patient is cooperative but is obviously intoxicated <Flory Corrigan, DO - Last Filed: 08/17/22 19:05> Initial Vital Signs Initial Vital Signs: Vital Signs Temperature 98.8 F 08/16/22 19:17 Pulse Rate 120 H 08/16/22 19:17 Respiratory Rate 18 08/16/22 19:17 Blood Pressure 124/87 08/16/22 19:17 Pulse Oximetry 95 08/16/22 19:17 Oxygen Delivery Method Room Air 08/16/22 19:17 Course <Chris Wheeler, DO - Last Filed: 08/17/22 17:58> Orders Ordered: Discontinued Medications Acetaminophen (Acetaminophen 325 Mg Tablet) 650 mg PO Q6H PRN PRN Reason: Fever/Mild Pain (1-3) Enoxaparin Sodium (Enoxaparin 40 Mg/0.4 Ml Syringe) 40 mg SUBCUT DAILY [facility] Last Admin: 08/17/22 12:10 Dose: 40 mg Documented By: JOSE JUAN Folic Acid (Folic Acid 1 Mg Tablet) 1 mg PO DAILY [facility] Last Admin: 08/17/22 12:10 Dose: 1 mg Documented By: JOSE JUAN Sodium Chloride (Normal Saline 0.9%) 1,000 mls @ 1,000 mls/hr IV BOLUS ONE Stop: 08/16/22 21:26 Last Infusion: 08/16/22 22:25 Dose: 0 mls/hr Documented By: Admin: 08/16/22 20:35 Dose: 1,000 mls/hr Documented By: Sodium Chloride (Normal Saline 0.9%) 1,000 mls @ 1,000 mls/hr IV BOLUS ONE Stop: 08/17/22 09:49 Last Infusion: 08/17/22 10:51 Dose: 0 mls/hr Documented By: Admin: 08/17/22 08:55 Dose: 1,000 mls/hr Documented By: LALA Sodium Chloride (Normal Saline 0.9%) 1,000 mls @ 100 mls/hr IV CONT JOANNE Stop: 08/17/22 22:44 Last Admin: 08/17/22 11:20 Dose: 100 mls/hr Documented By: JOSE JUAN Lorazepam (Lorazepam 2 Mg/Ml Inj) 1 mg IV NOW ONE Stop: 08/16/22 23:17 Last Admin: 08/16/22 23:20 Dose: 1 mg Documented By: STEPHANIE Lorazepam (Lorazepam 2 Mg/Ml Inj) 1 mg IV NOW ONE Stop: 08/17/22 01:47 Last Admin: 08/17/22 01:50 Dose: 1 mg Documented By: STEPHANIE Lorazepam (Lorazepam 2 Mg/Ml Inj) 2 mg IV NOW ONE Stop: 08/17/22 08:07 Last Admin: 08/17/22 08:21 Dose: 2 mg Documented By: LALA Lorazepam (Lorazepam 2 Mg/Ml Inj) 0 mg IV CIWAPRN PRN; Protocol PRN Reason: Alcohol Withdrawal Last Admin: 08/17/22 13:41 Dose: 1 mg Documented By: JOSE JUAN Lorazepam (Lorazepam 1 Mg Tablet) 0 mg PO CIWAPRN PRN; Protocol PRN Reason: Alcohol Withdrawal Melatonin (Melatonin 3 Mg Tablet) 6 mg PO BEDTIME PRN PRN Reason: Insomnia Multivitamins (Multivitamin 1 Tablet) 1 tab PO DAILY [facility] Last Admin: 08/17/22 12:10 Dose: 1 tab Documented By: JOSE JUAN Naloxone HCl (Naloxone 0.4 Mg/Ml Vial) 0.2 mg IV Q2MIN PRN PRN Reason: Opiate Reversal Ondansetron HCl (Ondansetron 4 Mg/2 Ml Inj) 4 mg IV NOW ONE Stop: 08/16/22 22:41 Last Admin: 08/16/22 22:45 Dose: 4 mg Documented By: STEPHANIE Ondansetron HCl (Ondansetron 4 Mg/2 Ml Inj) 4 mg IV NOW ONE Stop: 08/17/22 05:11 Last Admin: 08/17/22 05:22 Dose: 4 mg Documented By: KEN Ondansetron HCl (Ondansetron 4 Mg/2 Ml Inj) 4 mg IV NOW ONE Stop: 08/17/22 08:07 Last Admin: 08/17/22 08:21 Dose: 4 mg Documented By: LALA Ondansetron HCl (Ondansetron 4 Mg/2 Ml Inj) 4 mg IV Q4HR [facility] Last Admin: 08/17/22 13:06 Dose: 4 mg Documented By: JOSE JUAN Phenobarbital (Phenobarbital 65 Mg/Ml Vial) 260 mg IV NOW ONE Stop: 08/16/22 20:21 Last Admin: 08/16/22 20:35 Dose: 260 mg Documented By: Polyethylene Glycol (Polyethylene Glycol 3350 17 Gm Powd.Pack) 17 gm PO DAILY PRN PRN Reason: Constipation Sennosides (Sennosides 8.6 Mg Tablet) 8.6 mg PO BID PRN PRN Reason: Constipation Thiamine HCl (Thiamine 100 Mg Tablet) 100 mg PO DAILY JOANNE Stop: 08/20/22 09:01 Last Admin: 08/17/22 12:10 Dose: 100 mg Documented By: JOSE JUAN Vital Signs Vital signs: Vital Signs - 8 hr 08/17/22 10:00 08/17/22 10:00 08/17/22 10:30 Pulse Rate 119 H 106 H Respiratory Rate 20 21 Blood Pressure 116/75 <Flory Corrigan DO - Last Filed: 08/17/22 19:05> Orders Ordered: Discontinued Medications Acetaminophen (Acetaminophen 325 Mg Tablet) 650 mg PO Q6H PRN PRN Reason: Fever/Mild Pain (1-3) Enoxaparin Sodium (Enoxaparin 40 Mg/0.4 Ml Syringe) 40 mg SUBCUT DAILY [facility] Last Admin: 08/17/22 12:10 Dose: 40 mg Documented By: JOSE JUAN Folic Acid (Folic Acid 1 Mg Tablet) 1 mg PO DAILY [facility] Last Admin: 08/17/22 12:10 Dose: 1 mg Documented By: JOSE JUAN Sodium Chloride (Normal Saline 0.9%) 1,000 mls @ 1,000 mls/hr IV BOLUS ONE Stop: 08/16/22 21:26 Last Infusion: 08/16/22 22:25 Dose: 0 mls/hr Documented By: Admin: 08/16/22 20:35 Dose: 1,000 mls/hr Documented By: Sodium Chloride (Normal Saline 0.9%) 1,000 mls @ 1,000 mls/hr IV BOLUS ONE Stop: 08/17/22 09:49 Last Infusion: 08/17/22 10:51 Dose: 0 mls/hr Documented By: Admin: 08/17/22 08:55 Dose: 1,000 mls/hr Documented By: LALA Sodium Chloride (Normal Saline 0.9%) 1,000 mls @ 100 mls/hr IV CONT JOANNE Stop: 08/17/22 22:44 Last Admin: 08/17/22 11:20 Dose: 100 mls/hr Documented By: JOSE JUAN Lorazepam (Lorazepam 2 Mg/Ml Inj) 1 mg IV NOW ONE Stop: 08/16/22 23:17 Last Admin: 08/16/22 23:20 Dose: 1 mg Documented By: STEPHANIE Lorazepam (Lorazepam 2 Mg/Ml Inj) 1 mg IV NOW ONE Stop: 08/17/22 01:47 Last Admin: 08/17/22 01:50 Dose: 1 mg Documented By: STEPHANIE Lorazepam (Lorazepam 2 Mg/Ml Inj) 2 mg IV NOW ONE Stop: 08/17/22 08:07 Last Admin: 08/17/22 08:21 Dose: 2 mg Documented By: LALA Lorazepam (Lorazepam 2 Mg/Ml Inj) 0 mg IV CIWAPRN PRN; Protocol PRN Reason: Alcohol Withdrawal Last Admin: 08/17/22 13:41 Dose: 1 mg Documented By: JOSE JUAN Lorazepam (Lorazepam 1 Mg Tablet) 0 mg PO CIWAPRN PRN; Protocol PRN Reason: Alcohol Withdrawal Melatonin (Melatonin 3 Mg Tablet) 6 mg PO BEDTIME PRN PRN Reason: Insomnia Multivitamins (Multivitamin 1 Tablet) 1 tab PO DAILY [facility] Last Admin: 08/17/22 12:10 Dose: 1 tab Documented By: JOSE JUAN Naloxone HCl (Naloxone 0.4 Mg/Ml Vial) 0.2 mg IV Q2MIN PRN PRN Reason: Opiate Reversal Ondansetron HCl (Ondansetron 4 Mg/2 Ml Inj) 4 mg IV NOW ONE Stop: 08/16/22 22:41 Last Admin: 08/16/22 22:45 Dose: 4 mg Documented By: STEPHANIE Ondansetron HCl (Ondansetron 4 Mg/2 Ml Inj) 4 mg IV NOW ONE Stop: 08/17/22 05:11 Last Admin: 08/17/22 05:22 Dose: 4 mg Documented By: KEN Ondansetron HCl (Ondansetron 4 Mg/2 Ml Inj) 4 mg IV NOW ONE Stop: 08/17/22 08:07 Last Admin: 08/17/22 08:21 Dose: 4 mg Documented By: LALA Ondansetron HCl (Ondansetron 4 Mg/2 Ml Inj) 4 mg IV Q4HR [facility] Last Admin: 08/17/22 13:06 Dose: 4 mg Documented By: JOSE JUAN Phenobarbital (Phenobarbital 65 Mg/Ml Vial) 260 mg IV NOW ONE Stop: 08/16/22 20:21 Last Admin: 08/16/22 20:35 Dose: 260 mg Documented By: Polyethylene Glycol (Polyethylene Glycol 3350 17 Gm Powd.Pack) 17 gm PO DAILY PRN PRN Reason: Constipation Sennosides (Sennosides 8.6 Mg Tablet) 8.6 mg PO BID PRN PRN Reason: Constipation Thiamine HCl (Thiamine 100 Mg Tablet) 100 mg PO DAILY [facility] Stop: 08/20/22 09:01 Last Admin: 08/17/22 12:10 Dose: 100 mg Documented By: JOSE JUAN Vital Signs Vital signs: Vital Signs - 8 hr 08/17/22 10:00 08/17/22 10:00 08/17/22 10:30 Pulse Rate 119 H 106 H Respiratory Rate 20 21 Blood Pressure 116/75 Medical Decision Making <Chris Wheeler DO - Last Filed: 08/17/22 17:58> Lab Data Lab results reviewed: Yes I reviewed the patient's lab results. 08/16/22 19:47 08/16/22 19:47 Labs: Lab Results 08/16/22 08/16/22 08/16/22 Range/Units 19:40 19:47 19:47 WBC 9.4 (4.5-11.0) X10^3/uL RBC 4.43 (4.0-5.2) X10^6/uL Hgb 14.2 (12.0-16.0) g/dL Hct 42.2 (36-46) % MCV 95.2 (80-100) fL MCH 32.0 (26-34) PG MCHC 33.6 (30-36) % RDW 14.3 (11.6-14.8) % Plt Count 240 (150-400) X10^3/uL Neut % (Auto) 88.9 H (50-75) % Lymph % (Auto) 8.9 L (25-40) % [place] % (Auto) 1.8 L (3-14) % Eos % (Auto) 0.0 L (2-4) % Baso % (Auto) 0.4 (0-2) % Neut # (Auto) 8400 H (7021-9894) /uL Lymph # (Auto) 800 L (5329-2261) /uL [place] # (Auto) 200 (0-900) /uL Eos # (Auto) 0 (0-450) /uL Baso # (Auto) 0 (0-100) /uL Clumped Platelets RBC Morphology Normal morphology Sodium 136 L (137-145) mmol/L Potassium 4.4 (3.4-5.1) mmol/L Chloride 97 L (98-107) mmol/L Carbon Dioxide 12 L (22-32) mmol/L BUN 17 (7-17) mg/dL Creatinine 0.56 (0.52-1.04) mg/dL Estimated GFR > 60 (>60) mL/min BUN/Creatinine Ratio 30.4 H (6-22) Glucose 72 (70-100) mg/dL Calcium 8.1 L (8.4-10.2) mg/dL Magnesium (1.6-2.3) mg/dL Total Bilirubin 1.6 H (0.2-1.3) mg/dL AST 209 H (14-36) IU/L ALT 108 H (<35) IU/L Alkaline Phosphatase 67 (38-126) U/L Total Protein 9.0 H (6.3-8.2) g/dL Albumin 5.1 H (3.5-5.0) g/dL Globulin 3.9 (1.7-4.1) g/dL Albumin/Globulin Ratio 1.3 (1.0-2.8) Lipase 626 H (23-300) U/L TSH (0.47-4.68) uIU/mL HCG, Quant 8.3 mIU/mL Serum , Qual (Negative) U Opiates 300ng/mL cut (Negative) Ur Oxycodone Screen (Negative) Urine Methadone Screen (Negative) Ur Barbiturates Screen (Negative) U Tricyclic Antidepress (Negative) Ur Phencyclidine Scrn (Negative) Ur Amphetamines Screen (Negative) U Methamphetamines Scrn (Negative) Ur MDMA Scrn (Ecstasy) (Negative) U Benzodiazepines Scrn (Negative) Urine Cocaine Screen (Negative) U Marijuana (THC) Screen (Negative) Ethyl Alcohol ( - 10) mg/dL Blood Type 08/16/22 08/16/22 08/16/22 Range/Units 19:47 21:18 21:18 WBC (4.5-11.0) X10^3/uL RBC (4.0-5.2) X10^6/uL Hgb (12.0-16.0) g/dL Hct (36-46) % MCV (80-100) fL MCH (26-34) PG MCHC (30-36) % RDW (11.6-14.8) % Plt Count (150-400) X10^3/uL Neut % (Auto) (50-75) % Lymph % (Auto) (25-40) % [place] % (Auto) (3-14) % Eos % (Auto) (2-4) % Baso % (Auto) (0-2) % Neut # (Auto) (8385-0129) /uL Lymph # (Auto) (4499-4453) /uL [place] # (Auto) (0-900) /uL Eos # (Auto) (0-450) /uL Baso # (Auto) (0-100) /uL Clumped Platelets RBC Morphology Sodium (137-145) mmol/L Potassium (3.4-5.1) mmol/L Chloride (98-107) mmol/L Carbon Dioxide (22-32) mmol/L BUN (7-17) mg/dL Creatinine (0.52-1.04) mg/dL Estimated GFR (>60) mL/min BUN/Creatinine Ratio (6-22) Glucose (70-100) mg/dL Calcium (8.4-10.2) mg/dL Magnesium (1.6-2.3) mg/dL Total Bilirubin (0.2-1.3) mg/dL AST (14-36) IU/L ALT (<35) IU/L Alkaline Phosphatase (38-126) U/L Total Protein (6.3-8.2) g/dL Albumin (3.5-5.0) g/dL Globulin (1.7-4.1) g/dL Albumin/Globulin Ratio (1.0-2.8) Lipase (23-300) U/L TSH (0.47-4.68) uIU/mL HCG, Quant mIU/mL Serum , Qual Positive H (Negative) U Opiates 300ng/mL cut (Negative) Ur Oxycodone Screen (Negative) Urine Methadone Screen (Negative) Ur Barbiturates Screen (Negative) U Tricyclic Antidepress (Negative) Ur Phencyclidine Scrn (Negative) Ur Amphetamines Screen (Negative) U Methamphetamines Scrn (Negative) Ur MDMA Scrn (Ecstasy) (Negative) U Benzodiazepines Scrn (Negative) Urine Cocaine Screen (Negative) U Marijuana (THC) Screen (Negative) Ethyl Alcohol 375 H ( - 10) mg/dL Blood Type O Positive 08/17/22 08/17/22 08/17/22 Range/Units 02:50 06:43 06:43 WBC (4.5-11.0) X10^3/uL RBC (4.0-5.2) X10^6/uL Hgb (12.0-16.0) g/dL Hct (36-46) % MCV (80-100) fL MCH (26-34) PG MCHC (30-36) % RDW (11.6-14.8) % Plt Count (150-400) X10^3/uL Neut % (Auto) (50-75) % Lymph % (Auto) (25-40) % [place] % (Auto) (3-14) % Eos % (Auto) (2-4) % Baso % (Auto) (0-2) % Neut # (Auto) (8409-7321) /uL Lymph # (Auto) (4042-5565) /uL [place] # (Auto) (0-900) /uL Eos # (Auto) (0-450) /uL Baso # (Auto) (0-100) /uL Clumped Platelets RBC Morphology Sodium (137-145) mmol/L Potassium (3.4-5.1) mmol/L Chloride (98-107) mmol/L Carbon Dioxide (22-32) mmol/L BUN (7-17) mg/dL Creatinine (0.52-1.04) mg/dL Estimated GFR (>60) mL/min BUN/Creatinine Ratio (6-22) Glucose (70-100) mg/dL Calcium (8.4-10.2) mg/dL Magnesium 1.7 (1.6-2.3) mg/dL Total Bilirubin (0.2-1.3) mg/dL AST (14-36) IU/L ALT (<35) IU/L Alkaline Phosphatase (38-126) U/L Total Protein (6.3-8.2) g/dL Albumin (3.5-5.0) g/dL Globulin (1.7-4.1) g/dL Albumin/Globulin Ratio (1.0-2.8) Lipase (23-300) U/L TSH (0.47-4.68) uIU/mL HCG, Quant mIU/mL Serum , Qual (Negative) U Opiates 300ng/mL cut Negative (Negative) Ur Oxycodone Screen Negative (Negative) Urine Methadone Screen Negative (Negative) Ur Barbiturates Screen Negative (Negative) U Tricyclic Antidepress Negative (Negative) Ur Phencyclidine Scrn Negative (Negative) Ur Amphetamines Screen Negative (Negative) U Methamphetamines Scrn Negative (Negative) Ur MDMA Scrn (Ecstasy) Negative (Negative) U Benzodiazepines Scrn Negative (Negative) Urine Cocaine Screen Negative (Negative) U Marijuana (THC) Screen Negative (Negative) Ethyl Alcohol 174 H ( - 10) mg/dL Blood Type 08/17/22 Range/Units 06:43 WBC (4.5-11.0) X10^3/uL RBC (4.0-5.2) X10^6/uL Hgb (12.0-16.0) g/dL Hct (36-46) % MCV (80-100) fL MCH (26-34) PG MCHC (30-36) % RDW (11.6-14.8) % Plt Count (150-400) X10^3/uL Neut % (Auto) (50-75) % Lymph % (Auto) (25-40) % [place] % (Auto) (3-14) % Eos % (Auto) (2-4) % Baso % (Auto) (0-2) % Neut # (Auto) (9599-7802) /uL Lymph # (Auto) (4776-9837) /uL [place] # (Auto) (0-900) /uL Eos # (Auto) (0-450) /uL Baso # (Auto) (0-100) /uL Clumped Platelets RBC Morphology Sodium (137-145) mmol/L Potassium (3.4-5.1) mmol/L Chloride (98-107) mmol/L Carbon Dioxide (22-32) mmol/L BUN (7-17) mg/dL Creatinine (0.52-1.04) mg/dL Estimated GFR (>60) mL/min BUN/Creatinine Ratio (6-22) Glucose (70-100) mg/dL Calcium (8.4-10.2) mg/dL Magnesium (1.6-2.3) mg/dL Total Bilirubin (0.2-1.3) mg/dL AST (14-36) IU/L ALT (<35) IU/L Alkaline Phosphatase (38-126) U/L Total Protein (6.3-8.2) g/dL Albumin (3.5-5.0) g/dL Globulin (1.7-4.1) g/dL Albumin/Globulin Ratio (1.0-2.8) Lipase (23-300) U/L TSH 2.47 (0.47-4.68) uIU/mL HCG, Quant mIU/mL Serum , Qual (Negative) U Opiates 300ng/mL cut (Negative) Ur Oxycodone Screen (Negative) Urine Methadone Screen (Negative) Ur Barbiturates Screen (Negative) U Tricyclic Antidepress (Negative) Ur Phencyclidine Scrn (Negative) Ur Amphetamines Screen (Negative) U Methamphetamines Scrn (Negative) Ur MDMA Scrn (Ecstasy) (Negative) U Benzodiazepines Scrn (Negative) Urine Cocaine Screen (Negative) U Marijuana (THC) Screen (Negative) Ethyl Alcohol ( - 10) mg/dL Blood Type MDM Narrative Medical decision making narrative: Patient was here voluntarily but is intoxicated. Was given phenobarbital upon arrival. Her labs then resulted showing a positive serum test. Her hCG quantitative level was less than 10. Patient was intoxicated and also very somnolent so I opted to wait on telling the patient of the positive test and obtaining an ultrasound until the patient britta up and can have a coherent conversation. Patient did have a couple episodes of nausea. Has rec eived a couple doses of Ativan which does seem to keep her symptoms under control. This morning patient states she is feeling somewhat better but is very sleepy. She is still tachycardic. Occasionally is having nausea. Is more alert this morning. I did talk with her about her positive test. She states that she has been 1 time in the past. That was approximately 3 months ago. States this ended in a miscarriage. Advised that we obtain an ultrasound for further evaluation. She expressed understanding and agreement. Care turned over to day provider to continue to observe until disposition. <Flory Corrigan, DO - Last Filed: 08/17/22 19:05> Lab Data Labs: Lab Results 08/16/22 08/16/22 08/16/22 Range/Units 19:40 19:47 19:47 WBC 9.4 (4.5-11.0) X10^3/uL RBC 4.43 (4.0-5.2) X10^6/uL Hgb 14.2 (12.0-16.0) g/dL Hct 42.2 (36-46) % MCV 95.2 (80-100) fL MCH 32.0 (26-34) PG MCHC 33.6 (30-36) % RDW 14.3 (11.6-14.8) % Plt Count 240 (150-400) X10^3/uL Neut % (Auto) 88.9 H (50-75) % Lymph % (Auto) 8.9 L (25-40) % [place] % (Auto) 1.8 L (3-14) % Eos % (Auto) 0.0 L (2-4) % Baso % (Auto) 0.4 (0-2) % Neut # (Auto) 8400 H (1344-2591) /uL Lymph # (Auto) 800 L (2229-5897) /uL [place] # (Auto) 200 (0-900) /uL Eos # (Auto) 0 (0-450) /uL Baso # (Auto) 0 (0-100) /uL Clumped Platelets RBC Morphology Normal morphology Sodium 136 L (137-145) mmol/L Potassium 4.4 (3.4-5.1) mmol/L Chloride 97 L (98-107) mmol/L Carbon Dioxide 12 L (22-32) mmol/L BUN 17 (7-17) mg/dL Creatinine 0.56 (0.52-1.04) mg/dL Estimated GFR > 60 (>60) mL/min BUN/Creatinine Ratio 30.4 H (6-22) Glucose 72 (70-100) mg/dL Calcium 8.1 L (8.4-10.2) mg/dL Magnesium (1.6-2.3) mg/dL Total Bilirubin 1.6 H (0.2-1.3) mg/dL AST 209 H (14-36) IU/L ALT 108 H (<35) IU/L Alkaline Phosphatase 67 (38-126) U/L Total Protein 9.0 H (6.3-8.2) g/dL Albumin 5.1 H (3.5-5.0) g/dL Globulin 3.9 (1.7-4.1) g/dL Albumin/Globulin Ratio 1.3 (1.0-2.8) Lipase 626 H (23-300) U/L TSH (0.47-4.68) uIU/mL HCG, Quant 8.3 mIU/mL Serum , Qual (Negative) U Opiates 300ng/mL cut (Negative) Ur Oxycodone Screen (Negative) Urine Methadone Screen (Negative) Ur Barbiturates Screen (Negative) U Tricyclic Antidepress (Negative) Ur Phencyclidine Scrn (Negative) Ur Amphetamines Screen (Negative) U Methamphetamines Scrn (Negative) Ur MDMA Scrn (Ecstasy) (Negative) U Benzodiazepines Scrn (Negative) Urine Cocaine Screen (Negative) U Marijuana (THC) Screen (Negative) Ethyl Alcohol ( - 10) mg/dL Blood Type 08/16/22 08/16/22 08/16/22 Range/Units 19:47 21:18 21:18 WBC (4.5-11.0) X10^3/uL RBC (4.0-5.2) X10^6/uL Hgb (12.0-16.0) g/dL Hct (36-46) % MCV (80-100) fL MCH (26-34) PG MCHC (30-36) % RDW (11.6-14.8) % Plt Count (150-400) X10^3/uL Neut % (Auto) (50-75) % Lymph % (Auto) (25-40) % [place] % (Auto) (3-14) % Eos % (Auto) (2-4) % Baso % (Auto) (0-2) % Neut # (Auto) (2110-0373) /uL Lymph # (Auto) (6796-9485) /uL [place] # (Auto) (0-900) /uL Eos # (Auto) (0-450) /uL Baso # (Auto) (0-100) /uL Clumped Platelets RBC Morphology Sodium (137-145) mmol/L Potassium (3.4-5.1) mmol/L Chloride (98-107) mmol/L Carbon Dioxide (22-32) mmol/L BUN (7-17) mg/dL Creatinine (0.52-1.04) mg/dL Estimated GFR (>60) mL/min BUN/Creatinine Ratio (6-22) Glucose (70-100) mg/dL Calcium (8.4-10.2) mg/dL Magnesium (1.6-2.3) mg/dL Total Bilirubin (0.2-1.3) mg/dL AST (14-36) IU/L ALT (<35) IU/L Alkaline Phosphatase (38-126) U/L Total Protein (6.3-8.2) g/dL Albumin (3.5-5.0) g/dL Globulin (1.7-4.1) g/dL Albumin/Globulin Ratio (1.0-2.8) Lipase (23-300) U/L TSH (0.47-4.68) uIU/mL HCG, Quant mIU/mL Serum , Qual Positive H (Negative) U Opiates 300ng/mL cut (Negative) Ur Oxycodone Screen (Negative) Urine Methadone Screen (Negative) Ur Barbiturates Screen (Negative) U Tricyclic Antidepress (Negative) Ur Phencyclidine Scrn (Negative) Ur Amphetamines Screen (Negative) U Methamphetamines Scrn (Negative) Ur MDMA Scrn (Ecstasy) (Negative) U Benzodiazepines Scrn (Negative) Urine Cocaine Screen (Negative) U Marijuana (THC) Screen (Negative) Ethyl Alcohol 375 H ( - 10) mg/dL Blood Type O Positive 08/17/22 08/17/22 08/17/22 Range/Units 02:50 06:43 06:43 WBC (4.5-11.0) X10^3/uL RBC (4.0-5.2) X10^6/uL Hgb (12.0-16.0) g/dL Hct (36-46) % MCV (80-100) fL MCH (26-34) PG MCHC (30-36) % RDW (11.6-14.8) % Plt Count (150-400) X10^3/uL Neut % (Auto) (50-75) % Lymph % (Auto) (25-40) % [place] % (Auto) (3-14) % Eos % (Auto) (2-4) % Baso % (Auto) (0-2) % Neut # (Auto) (1741-1179) /uL Lymph # (Auto) (6040-6605) /uL [place] # (Auto) (0-900) /uL Eos # (Auto) (0-450) /uL Baso # (Auto) (0-100) /uL Clumped Platelets RBC Morphology Sodium (137-145) mmol/L Potassium (3.4-5.1) mmol/L Chloride (98-107) mmol/L Carbon Dioxide (22-32) mmol/L BUN (7-17) mg/dL Creatinine (0.52-1.04) mg/dL Estimated GFR (>60) mL/min BUN/Creatinine Ratio (6-22) Glucose (70-100) mg/dL Calcium (8.4-10.2) mg/dL Magnesium 1.7 (1.6-2.3) mg/dL Total Bilirubin (0.2-1.3) mg/dL AST (14-36) IU/L ALT (<35) IU/L Alkaline Phosphatase (38-126) U/L Total Protein (6.3-8.2) g/dL Albumin (3.5-5.0) g/dL Globulin (1.7-4.1) g/dL Albumin/Globulin Ratio (1.0-2.8) Lipase (23-300) U/L TSH (0.47-4.68) uIU/mL HCG, Quant mIU/mL Serum , Qual (Negative) U Opiates 300ng/mL cut Negative (Negative) Ur Oxycodone Screen Negative (Negative) Urine Methadone Screen Negative (Negative) Ur Barbiturates Screen Negative (Negative) U Tricyclic Antidepress Negative (Negative) Ur Phencyclidine Scrn Negative (Negative) Ur Amphetamines Screen Negative (Negative) U Methamphetamines Scrn Negative (Negative) Ur MDMA Scrn (Ecstasy) Negative (Negative) U Benzodiazepines Scrn Negative (Negative) Urine Cocaine Screen Negative (Negative) U Marijuana (THC) Screen Negative (Negative) Ethyl Alcohol 174 H ( - 10) mg/dL Blood Type 08/17/22 Range/Units 06:43 WBC (4.5-11.0) X10^3/uL RBC (4.0-5.2) X10^6/uL Hgb (12.0-16.0) g/dL Hct (36-46) % MCV (80-100) fL MCH (26-34) PG MCHC (30-36) % RDW (11.6-14.8) % Plt Count (150-400) X10^3/uL Neut % (Auto) (50-75) % Lymph % (Auto) (25-40) % [place] % (Auto) (3-14) % Eos % (Auto) (2-4) % Baso % (Auto) (0-2) % Neut # (Auto) (6218-0295) /uL Lymph # (Auto) (8069-7380) /uL [place] # (Auto) (0-900) /uL Eos # (Auto) (0-450) /uL Baso # (Auto) (0-100) /uL Clumped Platelets RBC Morphology Sodium (137-145) mmol/L Potassium (3.4-5.1) mmol/L Chloride (98-107) mmol/L Carbon Dioxide (22-32) mmol/L BUN (7-17) mg/dL Creatinine (0.52-1.04) mg/dL Estimated GFR (>60) mL/min BUN/Creatinine Ratio (6-22) Glucose (70-100) mg/dL Calcium (8.4-10.2) mg/dL Magnesium (1.6-2.3) mg/dL Total Bilirubin (0.2-1.3) mg/dL AST (14-36) IU/L ALT (<35) IU/L Alkaline Phosphatase (38-126) U/L Total Protein (6.3-8.2) g/dL Albumin (3.5-5.0) g/dL Globulin (1.7-4.1) g/dL Albumin/Globulin Ratio (1.0-2.8) Lipase (23-300) U/L TSH 2.47 (0.47-4.68) uIU/mL HCG, Quant mIU/mL Serum , Qual (Negative) U Opiates 300ng/mL cut (Negative) Ur Oxycodone Screen (Negative) Urine Methadone Screen (Negative) Ur Barbiturates Screen (Negative) U Tricyclic Antidepress (Negative) Ur Phencyclidine Scrn (Negative) Ur Amphetamines Screen (Negative) U Methamphetamines Scrn (Negative) Ur MDMA Scrn (Ecstasy) (Negative) U Benzodiazepines Scrn (Negative) Urine Cocaine Screen (Negative) U Marijuana (THC) Screen (Negative) Ethyl Alcohol ( - 10) mg/dL Blood Type Imaging Data 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 US PELVIC COMPLETE ? INDICATIONS:? POSITIVE HCG; UNKNOWN DATES ? TECHNIQUE:? Real-time scanning was performed of the pelvic organs, with image documentation.? Additional endovaginal scanning was necessary due to incomplete visualization of the adnexal and endometrial structures by transabdominal scanning.? ? COMPARISON:? None. ? FINDINGS:? ?? Uterus:? Uterus is anteverted and normal in size at 8.7 x 4.1 x 4.9 cm. The myometrium is homogeneous.? There is focal thickening of the fundal endometrium measuring up to 2.3 x 2.4 x 2.0 cm with internal vascularity.? No intrauterine gestational sac is seen. ? Ovaries:? The right ovary measures 3.0 x 2.2 x 1.4 cm, with a calculated ovarian volume of 4.7 cc. The left ovary is not visualized. The right ovary has a normal sonographic appearance. No adnexal masses are seen. ? Other:? No pathologic free abdominal or pelvic fluid. ? ? IMPRESSION:? 1. No intrauterine or ectopic is seen.? Focal endometrial thickening is seen near the fundus with increased vascularity.? Findings could represent normal early , molar , early failure with retained products of conception, or a separate process such as endometrial hyperplasia or polyp.? Recommend correlation with clinical findings and serial beta HCG values, and follow-up ultrasound as needed. 2. Left ovary not visualized.? Normal right ovary.? No adnexal mass is seen. ? We strive to produce accurate, complete, and clear reports of imaging services. To assist us in improving patient care, this report was composed using standard report templates and voice recognition software. Therefore, it may contain abnormal punctuation, insertions and/or omissions. Occasional wrong-word or sound-alike substitutions may occur. Though we review the report and make efforts to correct it, we do recommend that the report be read carefully in proper context to recognize any text inaccuracies. ? ? Approved by: Gelacio Thornton M.D. on 08/17/2022 at 8:11? [facility] Narrative Medical decision making narrative: Patient was here voluntarily but is intoxicated. Was given phenobarbital upon arrival. Her labs then resulted showing a positive serum test. Her hCG quantitative level was less than 10. Patient was intoxicated and also very somnolent so I opted to wait on telling the patient of the positive test and obtaining an ultrasound until the patient britta up and can have a coherent conversation. Patient did have a couple episodes of nausea. Has received a couple doses of Ativan which does seem to keep her symptoms under control. This morning patient states she is feeling somewhat better but is very sleepy. She is still tachycardic. Occasionally is having nausea. Is more alert this morning. I did talk with her about her positive test. She states that she has been 1 time in the past. That was approximately 3 months ago. States this ended in a miscarriage. Advised that we obtain an ultrasound for further evaluation. She expressed understanding and agreement. Care turned over to day provider to continue to observe until disposition. Patient signed out to me by Dr. Wheeler seen evaluated her this morning. Actively vomiting shaking appears to be going through alcohol withdrawal. Repeat alcohol level is 179. HCG is less than 10 pelvic ultrasound does not show an IUP but a thickened endometrium which could mean a variety of things including retained products versus early . Patient admits that she had a miscarriage back in May. She had a normal menstrual cycle back in July. Not having abdominal pain. She remains tachycardic and shaking she is given 2 mg of Ativan Zofran which seemed to help. Patient may benefit from inpatient detox. Patient persistently tachycardic even at rest despite Ativan. Likely going through alcohol withdrawal. Discussed with Dr. Gross, OB, in regards to possible versus retained products. She agrees to consult with the patient recommends repeating a HCG in the morning. Dr. Ureña updated on patient's symptoms test results agrees with admission with OB consultation Discharge Plan Departure Patient Disposition: Admitted As Inpatient Clinical Impression: Alcohol withdrawal syndrome Admit Date/Time: 08/17/22 10:32 Admit Provider: Wyatt Ureña
[2022-08-16 20:28] LABS: Basophils Absolute Auto 0 /uL (0-100); Basophils Percent Auto 0.4 % (0-2); Eosinophils Absolute Auto 0 /uL (0-450); Hematocrit 42.2 % (36-46); Hemoglobin 14.2 g/dL (12.0-16.0); Lymphocytes Absolute Auto 800 /uL (1100-4500); Lymphocytes Percent Auto 8.9 % (25-40); Mean Corpuscular HGB Conc 33.6 % (30-36); Mean Corpuscular Volume 95.2 fL (80-100); Monocytes Absolute Auto 200 /uL (0-900); Monocytes Percent Auto 1.8 % (3-14); Neutrophils Absolute Auto 8400 /uL (1500-7000); Neutrophils Percent Auto 88.9 % (50-75); Platelet Count 240 X10^3/uL (150-400); Red Blood Cell Count 4.43 X10^6/uL (4.0-5.2); Red Cell Distribution Width 14.3 % (11.6-14.8); White Blood Cell Count 9.4 X10^3/uL (4.5-11.0)
[2022-08-16] MEDS: SODIUM CHLORIDE 0.9% 1,000 ML 1000 ML IV (20:35)
[2022-08-16] MEDS: PHENobarbital 65 MG/ML VIAL 260 MG IV (20:35)
[2022-08-16 20:39] LABS: Alanine Aminotransferase 108 IU/L (<35); Albumin 5.1 g/dL (3.5-5.0); Albumin Globulin Ratio 1.3 (1.0-2.8); Alkaline Phosphatase 67 U/L (38-126); Aspartate Aminotransferase 209 IU/L (14-36); BUN Creatinine Ratio 30.4 (6-22); Bilirubin Total 1.6 mg/dL (0.2-1.3); Blood Urea Nitrogen 17 mg/dL (7-17); Calcium 8.1 mg/dL (8.4-10.2); Carbon Dioxide 12 mmol/L (22-32); Chloride 97 mmol/L (98-107); Estimated Glomerular Filt Rate > 60 mL/min (>60); Globulin 3.9 g/dL (1.7-4.1); Glucose 72 mg/dL (70-100); Lipase 626 U/L (23-300); Potassium 4.4 mmol/L (3.4-5.1); Sodium 136 mmol/L (137-145)
[2022-08-16 20:50] LABS: HEMOLYSIS 166 (0-50)
[2022-08-16 21:09] LABS: Add Manual Diff / Slide Review SLIDE REVIEW
[2022-08-16 21:37] LABS: Pregnancy Test Serum,Qual Positive (Negative)
[2022-08-16 21:46] LABS: RBC Morphology Normal Morphology
[2022-08-16 22:09] LABS: Ethanol (ETOH) 375 mg/dL
[2022-08-16 22:31] LABS: HCG Quantitative /Beta subunit 8.3 mIU/mL
[2022-08-16] MEDS: ONDANSETRON 4 MG/2 ML INJ IV (22:45)
[2022-08-16] MEDS: LORazepam 2 MG/ML INJ 1 MG IV (23:20)
[2022-08-17] VITALS (24 sets, daily range): BP systolic 106–127; BP diastolic 68–86; PULSE 96–119; RESP 13–24; TEMP 35.9; O2SAT 94–100; BMI 21.0
[2022-08-17] MEDS: LORazepam 2 MG/ML INJ 1 MG IV (01:50)
[2022-08-17 03:01] LABS: Ur Creatinine Normal (Normal); Ur Specific Gravity Normal (Normal); Urine pH Normal (Normal)
[2022-08-17 03:02] LABS: Urine Tetrahydrocannabinol Negative (Negative)
[2022-08-17 03:03] LABS: UR Morphine/Opiate cutoff 300 Negative (Negative); Urine Amphetamines Negative (Negative); Urine Barbiturates Negative (Negative); Urine Benzodiazepines Negative (Negative); Urine Cocaine Negative (Negative); Urine MDMA Negative (Negative); Urine Methadone Negative (Negative); Urine Methamphetamines Negative (Negative); Urine Oxycodone Negative (Negative); Urine Phencyclidine Negative (Negative); Urine Tricyclic Antidepressant Negative (Negative)
[2022-08-17] MEDS: ONDANSETRON 4 MG/2 ML INJ IV ×3 (05:22→13:06)
--- NOTE | 2022-08-17 06:37 | DI.US.S_ITS ---
PROCEDURE: US PELVIC COMPLETE INDICATIONS: POSITIVE HCG; UNKNOWN DATES TECHNIQUE: Real-time scanning was performed of the pelvic organs, with image documentation. Additional endovaginal scanning was necessary due to incomplete visualization of the adnexal and endometrial structures by transabdominal scanning. COMPARISON: None. FINDINGS: Uterus: Uterus is anteverted and normal in size at 8.7 x 4.1 x 4.9 cm. The myometrium is homogeneous. There is focal thickening of the fundal endometrium measuring up to 2.3 x 2.4 x 2.0 cm with internal vascularity. No intrauterine gestational sac is seen. Ovaries: The right ovary measures 3.0 x 2.2 x 1.4 cm, with a calculated ovarian volume of 4.7 cc. The left ovary is not visualized. The right ovary has a normal sonographic appearance. No adnexal masses are seen. Other: No pathologic free abdominal or pelvic fluid. IMPRESSION: 1. No intrauterine or ectopic is seen. Focal endometrial thickening is seen near the fundus with increased vascularity. Findings could represent normal early , molar , early failure with retained products of conception, or a separate process such as endometrial hyperplasia or polyp. Recommend correlation with clinical findings and serial beta HCG values, and follow-up ultrasound as needed. 2. Left ovary not visualized. Normal right ovary. No adnexal mass is seen. We strive to produce accurate, complete, and clear reports of imaging services. To assist us in improving patient care, this report was composed using standard report templates and voice recognition software. Therefore, it may contain abnormal punctuation, insertions and/or omissions. Occasional wrong-word or sound-alike substitutions may occur. Though we review the report and make efforts to correct it, we do recommend that the report be read carefully in proper context to recognize any text inaccuracies. Approved by: Gelacio Thornton M.D. on 08/17/2022 at 8:11
[2022-08-17 07:05] LABS: Ethanol (ETOH) 174 mg/dL
[2022-08-17] MEDS: LORazepam 2 MG/ML INJ IV ×2 (08:21→13:41)
[2022-08-17] MEDS: SODIUM CHLORIDE 0.9% 1,000 ML 1000 ML IV (08:55)
--- NOTE | 2022-08-17 10:50 | P.HP_ITS ---
History of Present Illness History of Present Illness Date Patient Seen: 08/17/22 Time Patient Seen: 12:00 Chief complaint: ALCOHOL WITHDRAWEL Narrative: Brenda Palafox is a 36yo F with PMH of alcohol abuse with seizures and recent miscarriage in May 2022 who presents with alcohol withdrawals. Patient is too somnolent to answer questions so history is obtained from her chart. Patient intially presented to [facility] ED with intoxication and wanting detox but then left AMA. She came in with her mother and boyfriend and by her own will. She normally drinks a 5th of whiskey daily and her last drink was before coming in. In the ED patient given multiple doses of IV ativan and one dose of IV phenobarb. Addendum: Upon reaching the floor patient slept for a bit. She then abruptly woke up and left AMA. She was lucid and A/Ox4 and signed the paperwork. [facility] Medical History Alcohol use disorder Social History household members: family Smoking Status: Current some day smoker alcohol intake: current Meds Home Medications and Allergies Home Medications Medication Instructions Recorded Confirmed Type lorazepam 1 mg tablet 1 mg PO TID PRN withdrawal 12/13/20 Rx symptoms #14 tabs Allergies Allergy/AdvReac Type Severity Reaction Status Date / Time No Known Drug Allergies Allergy Verified 08/16/22 19:20 Review of Systems Review of Systems Narrative: All other systems reviewed with the patient and are negative unless otherwise stated. Exam Vital Signs (past 8 hours): - 08/17/22 03:00 08/17/22 03:00 08/17/22 03:30 Pulse Rate 109 H 100 H Respiratory Rate 19 22 Blood Pressure 127/86 Pulse Oximetry 99 97 08/17/22 04:00 08/17/22 04:00 08/17/22 04:30 Pulse Rate 106 H 109 H Respiratory Rate 18 18 Blood Pressure 110/79 Pulse Oximetry 96 98 08/17/22 04:57 08/17/22 05:00 08/17/22 05:00 Pulse Rate 100 H 101 H Respiratory Rate 19 Blood Pressure 114/75 Pulse Oximetry 100 08/17/22 05:30 08/17/22 06:00 08/17/22 06:00 Pulse Rate 106 H 100 H Respiratory Rate 18 20 Blood Pressure 108/69 Pulse Oximetry 99 96 08/17/22 06:30 08/17/22 07:00 08/17/22 07:00 Pulse Rate 108 H 104 H Respiratory Rate 20 13 Blood Pressure 112/81 Pulse Oximetry 97 08/17/22 07:30 08/17/22 08:00 08/17/22 08:00 Pulse Rate 99 H 116 H Respiratory Rate 19 21 Blood Pressure 115/74 Pulse Oximetry 08/17/22 08:30 08/17/22 09:00 08/17/22 09:00 Pulse Rate 118 H 107 H Respiratory Rate 22 20 Blood Pressure 124/86 Pulse Oximetry 08/17/22 09:30 08/17/22 10:00 08/17/22 10:00 Pulse Rate 117 H 119 H Respiratory Rate 19 20 Blood Pressure 116/75 Pulse Oximetry 08/17/22 10:30 Pulse Rate 106 H Respiratory Rate 21 Blood Pressure Pulse Oximetry Oxygen Delivery Method Room Air Narrative Exam Narrative: GEN: no acute distress, sleeping HEENT: moist mucous membranes, PERRL NECK: trachea midline, no JVD CV: regular rate and rhythm, no murmurs PULM: clear bilaterally ABD: soft, nontender, nondistended, no organomegaly EXT: warm and well perfused with no edema NEURO: awake, alert, oriented, no focal deficits Objective Labs 08/16/22 19:47 08/16/22 19:47 Labs: Laboratory Results - last 24 hr 08/16/22 08/16/22 08/16/22 19:40 19:47 19:47 WBC 9.4 RBC 4.43 Hgb 14.2 Hct 42.2 MCV 95.2 MCH 32.0 MCHC 33.6 RDW 14.3 Plt Count 240 Neut % (Auto) 88.9 H Lymph % (Auto) 8.9 L [place] % (Auto) 1.8 L Eos % (Auto) 0.0 L Baso % (Auto) 0.4 Neut # (Auto) 8400 H Lymph # (Auto) 800 L [place] # (Auto) 200 Eos # (Auto) 0 Baso # (Auto) 0 Clumped Platelets RBC Morphology Normal morphology Sodium 136 L Potassium 4.4 Chloride 97 L Carbon Dioxide 12 L BUN 17 Creatinine 0.56 Estimated GFR > 60 BUN/Creatinine Ratio 30.4 H Glucose 72 Calcium 8.1 L Total Bilirubin 1.6 H AST 209 H ALT 108 H Alkaline Phosphatase 67 Total Protein 9.0 H Albumin 5.1 H Globulin 3.9 Albumin/Globulin Ratio 1.3 Lipase 626 H HCG, Quant 8.3 Serum , Qual U Opiates 300ng/mL cut Ur Oxycodone Screen Urine Methadone Screen Ur Barbiturates Screen U Tricyclic Antidepress Ur Phencyclidine Scrn Ur Amphetamines Screen U Methamphetamines Scrn Ur MDMA Scrn (Ecstasy) U Benzodiazepines Scrn Urine Cocaine Screen U Marijuana (THC) Screen Ethyl Alcohol Blood Type 08/16/22 08/16/22 08/16/22 19:47 21:18 21:18 WBC RBC Hgb Hct MCV MCH MCHC RDW Plt Count Neut % (Auto) Lymph % (Auto) [place] % (Auto) Eos % (Auto) Baso % (Auto) Neut # (Auto) Lymph # (Auto) [place] # (Auto) Eos # (Auto) Baso # (Auto) Clumped Platelets RBC Morphology Sodium Potassium Chloride Carbon Dioxide BUN Creatinine Estimated GFR BUN/Creatinine Ratio Glucose Calcium Total Bilirubin AST ALT Alkaline Phosphatase Total Protein Albumin Globulin Albumin/Globulin Ratio Lipase HCG, Quant Serum , Qual Positive H U Opiates 300ng/mL cut Ur Oxycodone Screen Urine Methadone Screen Ur Barbiturates Screen U Tricyclic Antidepress Ur Phencyclidine Scrn Ur Amphetamines Screen U Methamphetamines Scrn Ur MDMA Scrn (Ecstasy) U Benzodiazepines Scrn Urine Cocaine Screen U Marijuana (THC) Screen Ethyl Alcohol 375 H Blood Type O Positive 08/17/22 08/17/22 02:50 06:43 WBC RBC Hgb Hct MCV MCH MCHC RDW Plt Count Neut % (Auto) Lymph % (Auto) [place] % (Auto) Eos % (Auto) Baso % (Auto) Neut # (Auto) Lymph # (Auto) [place] # (Auto) Eos # (Auto) Baso # (Auto) Clumped Platelets RBC Morphology Sodium Potassium Chloride Carbon Dioxide BUN Creatinine Estimated GFR BUN/Creatinine Ratio Glucose Calcium Total Bilirubin AST ALT Alkaline Phosphatase Total Protein Albumin Globulin Albumin/Globulin Ratio Lipase HCG, Quant Serum , Qual U Opiates 300ng/mL cut Negative Ur Oxycodone Screen Negative Urine Methadone Screen Negative Ur Barbiturates Screen Negative U Tricyclic Antidepress Negative Ur Phencyclidine Scrn Negative Ur Amphetamines Screen Negative U Methamphetamines Scrn Negative Ur MDMA Scrn (Ecstasy) Negative U Benzodiazepines Scrn Negative Urine Cocaine Screen Negative U Marijuana (THC) Screen Negative Ethyl Alcohol 174 H Blood Type Assessment & Plan Assessment & Plan narrative: # acute alcohol withdrawals -ETOH 375 in ED, last drink just prior to coming in on 08/16. Received phenobarbital in ED. -[facility] protocol -multivitamin, thiamine and folate daily -SALES OPERATIONS ASSISTANT consult for resources -clear liquid diet and advance as tolerated # test positive in the setting of recent miscarriage -patient apparently had miscarriage in May 2022, qualitative beta HCG positive in ED -Dr. Grsos, tile machine operator called by ED who recommended rechecking quantitative beta HCG on 08/18 as positive test may be due to retained products -tile machine operator consulted and will follow -avoid meds toxic in # elevated LFTs and T bili -likely secondary to alcohol use -avoid hepatotoxic meds -daily CMPs Code status is full code. DVT prophylaxis with Lovenox. Proxy is Julia patient's mother. I have reviewed home meds and used all available resources to reconcile the home meds. This patient will be admitted as inpatient and will require greater than 2 midnights of hospital time to treat acute alcohol withdrawals.
[2022-08-17 11:12] LABS: Magnesium 1.7 mg/dL (1.6-2.3)
[2022-08-17] MEDS: SODIUM CHLORIDE 0.9% 1,000 ML 100 ML IV (11:20)
[2022-08-17 11:43] LABS: TSH w/ Reflex to FT4 2.47 uIU/mL (0.47-4.68)
[2022-08-17] MEDS: ENOXAPARIN 40 MG/0.4 ML SYRINGE SUBCUT (12:10)
[2022-08-17] MEDS: MULTIVITAMIN 1 TABLET 1 TAB PO (12:10)
[2022-08-17] MEDS: FOLIC ACID 1 MG TABLET PO (12:10)
[2022-08-17] MEDS: THIAMINE 100 MG TABLET PO (12:10)
--- NOTE | 2022-08-17 13:15 | PC.NURSE ---
Pt arrives from ED at approximately 1115. Her VSS, with slight tachycardia at 108 bpm. She is on RA. She denies M[place], auditory or visual hallucinations, no tremors observed. She is oriented but very lethargic, answering questions in between drifting off to sleep. NS at 100 ml/hr IVF, call light in reach. She drinks a juice and sips some water. Bed alarm on, frequent rounding. Mother Julia called with update.
--- NOTE | 2022-08-17 14:30 | PM.DS.1 ---
History of Present Illness History of Present Illness Date Patient Seen: 08/17/22 Time Patient Seen: 12:00 Chief complaint: ALCOHOL WITHDRAWEL Narrative: Brenda Palafox is a 36yo F with PMH of alcohol abuse with seizures and recent miscarriage in May 2022 who presents with alcohol withdrawals. Patient is too somnolent to answer questions so history is obtained from her chart. Patient intially presented to [facility] ED with intoxication and wanting detox but then left AMA. She came in with her mother and boyfriend and by her own will. She normally drinks a 5th of whiskey daily and her last drink was before coming in. In the ED patient given multiple doses of IV ativan and one dose of IV phenobarb. Addendum: Upon reaching the floor patient slept for a bit. She then abruptly woke up and left AMA. She was lucid and A/Ox4 and signed the paperwork. Discharge Providers Provider Date of admission: 08/17/22 10:32 Discharge Date: 08/17/22 Primary care physician: Doctor Rush MD Consults: 08/17/22 10:42 Consult to Dietitian, Adult Routine Comment: Reason For Exam: alcoholism 08/17/22 10:45 Consult to Obstetrics Routine Comment: Consulting Provider: Desi Gross Reason for consultation: possibly alcoholic Has provider been notified: Yes 08/17/22 11:23 Consult to FLORAL DECORATOR - Geothermal Powerplant Mechanic Routine Comment: alcohol abuse and may be Discharge provider: Wyatt Ureña, Summary Hospital Course Discharge Diagnosis: # acute alcohol withdrawals -ETOH 375 in ED, last drink just prior to coming in on 08/16.? Received phenobarbital in ED. -[facility] protocol -multivitamin, thiamine and folate daily -FLORAL DECORATOR consult for resources -clear liquid diet and advance as tolerated -left AMA once reaching the floor # test positive in the setting of recent miscarriage -patient apparently had miscarriage in May 2022, qualitative beta HCG positive in ED -Dr. Gross, solar energy engineer called by ED who recommended rechecking quantitative beta HCG on 08/18 as positive test may be due to retained products -solar energy engineer consulted and will follow -avoid meds toxic in # elevated LFTs and T bili -likely secondary to alcohol use -avoid hepatotoxic meds -daily CMPs Hospital Course: Admitted for alcohol withdrawals and after 2 hours on the floor she woke up then signed the papers to leave AMA. She was A/Ox4 at the time. She had no interest in staying. Exam Vital Signs (past 8 hours): - 08/17/22 07:00 08/17/22 07:00 08/17/22 07:30 Temperature Pulse Rate 104 H 99 H Respiratory Rate 13 19 Blood Pressure 112/81 Pulse Oximetry 08/17/22 08:00 08/17/22 08:00 08/17/22 08:30 Temperature Pulse Rate 116 H 118 H Respiratory Rate 21 22 Blood Pressure 115/74 Pulse Oximetry 08/17/22 09:00 08/17/22 09:00 08/17/22 09:30 Temperature Pulse Rate 107 H 117 H Respiratory Rate 20 19 Blood Pressure 124/86 Pulse Oximetry 08/17/22 10:00 08/17/22 10:00 08/17/22 10:30 Temperature Pulse Rate 119 H 106 H Respiratory Rate 20 21 Blood Pressure 116/75 Pulse Oximetry 08/17/22 11:30 Temperature 96.7 F L Pulse Rate 108 H Respiratory Rate 18 Blood Pressure 109/68 Pulse Oximetry 95 Oxygen Delivery Method Room Air Narrative Exam Narrative: GEN: no acute distress HEENT: moist mucous membranes, PERRL NECK: trachea midline, no JVD CV: regular rate and rhythm, no murmurs PULM: clear bilaterally ABD: soft, nontender, nondistended, no organomegaly EXT: warm and well perfused with no edema NEURO: awake, alert, oriented, no focal deficits Objective Labs 08/16/22 19:47 08/16/22 19:47 Labs: Laboratory Results - last 24 hr 08/16/22 08/16/22 08/16/22 19:40 19:47 19:47 WBC 9.4 RBC 4.43 Hgb 14.2 Hct 42.2 MCV 95.2 MCH 32.0 MCHC 33.6 RDW 14.3 Plt Count 240 Neut % (Auto) 88.9 H Lymph % (Auto) 8.9 L [place] % (Auto) 1.8 L Eos % (Auto) 0.0 L Baso % (Auto) 0.4 Neut # (Auto) 8400 H Lymph # (Auto) 800 L [place] # (Auto) 200 Eos # (Auto) 0 Baso # (Auto) 0 Clumped Platelets RBC Morphology Normal morphology Sodium 136 L Potassium 4.4 Chloride 97 L Carbon Dioxide 12 L BUN 17 Creatinine 0.56 Estimated GFR > 60 BUN/Creatinine Ratio 30.4 H Glucose 72 Calcium 8.1 L Magnesium Total Bilirubin 1.6 H AST 209 H ALT 108 H Alkaline Phosphatase 67 Total Protein 9.0 H Albumin 5.1 H Globulin 3.9 Albumin/Globulin Ratio 1.3 Lipase 626 H TSH HCG, Quant 8.3 Serum , Qual U Opiates 300ng/mL cut Ur Oxycodone Screen Urine Methadone Screen Ur Barbiturates Screen U Tricyclic Antidepress Ur Phencyclidine Scrn Ur Amphetamines Screen U Methamphetamines Scrn Ur MDMA Scrn (Ecstasy) U Benzodiazepines Scrn Urine Cocaine Screen U Marijuana (THC) Screen Ethyl Alcohol Blood Type 08/16/22 08/16/22 08/16/22 19:47 21:18 21:18 WBC RBC Hgb Hct MCV MCH MCHC RDW Plt Count Neut % (Auto) Lymph % (Auto) [place] % (Auto) Eos % (Auto) Baso % (Auto) Neut # (Auto) Lymph # (Auto) [place] # (Auto) Eos # (Auto) Baso # (Auto) Clumped Platelets RBC Morphology Sodium Potassium Chloride Carbon Dioxide BUN Creatinine Estimated GFR BUN/Creatinine Ratio Glucose Calcium Magnesium Total Bilirubin AST ALT Alkaline Phosphatase Total Protein Albumin Globulin Albumin/Globulin Ratio Lipase TSH HCG, Quant Serum , Qual Positive H U Opiates 300ng/mL cut Ur Oxycodone Screen Urine Methadone Screen Ur Barbiturates Screen U Tricyclic Antidepress Ur Phencyclidine Scrn Ur Amphetamines Screen U Methamphetamines Scrn Ur MDMA Scrn (Ecstasy) U Benzodiazepines Scrn Urine Cocaine Screen U Marijuana (THC) Screen Ethyl Alcohol 375 H Blood Type O Positive 08/17/22 08/17/22 08/17/22 02:50 06:43 06:43 WBC RBC Hgb Hct MCV MCH MCHC RDW Plt Count Neut % (Auto) Lymph % (Auto) [place] % (Auto) Eos % (Auto) Baso % (Auto) Neut # (Auto) Lymph # (Auto) [place] # (Auto) Eos # (Auto) Baso # (Auto) Clumped Platelets RBC Morphology Sodium Potassium Chloride Carbon Dioxide BUN Creatinine Estimated GFR BUN/Creatinine Ratio Glucose Calcium Magnesium 1.7 Total Bilirubin AST ALT Alkaline Phosphatase Total Protein Albumin Globulin Albumin/Globulin Ratio Lipase TSH HCG, Quant Serum , Qual U Opiates 300ng/mL cut Negative Ur Oxycodone Screen Negative Urine Methadone Screen Negative Ur Barbiturates Screen Negative U Tricyclic Antidepress Negative Ur Phencyclidine Scrn Negative Ur Amphetamines Screen Negative U Methamphetamines Scrn Negative Ur MDMA Scrn (Ecstasy) Negative U Benzodiazepines Scrn Negative Urine Cocaine Screen Negative U Marijuana (THC) Screen Negative Ethyl Alcohol 174 H Blood Type 08/17/22 06:43 WBC RBC Hgb Hct MCV MCH MCHC RDW Plt Count Neut % (Auto) Lymph % (Auto) [place] % (Auto) Eos % (Auto) Baso % (Auto) Neut # (Auto) Lymph # (Auto) [place] # (Auto) Eos # (Auto) Baso # (Auto) Clumped Platelets RBC Morphology Sodium Potassium Chloride Carbon Dioxide BUN Creatinine Estimated GFR BUN/Creatinine Ratio Glucose Calcium Magnesium Total Bilirubin AST ALT Alkaline Phosphatase Total Protein Albumin Globulin Albumin/Globulin Ratio Lipase TSH 2.47 HCG, Quant Serum , Qual U Opiates 300ng/mL cut Ur Oxycodone Screen Urine Methadone Screen Ur Barbiturates Screen U Tricyclic Antidepress Ur Phencyclidine Scrn Ur Amphetamines Screen U Methamphetamines Scrn Ur MDMA Scrn (Ecstasy) U Benzodiazepines Scrn Urine Cocaine Screen U Marijuana (THC) Screen Ethyl Alcohol Blood Type PFSH Medical History Alcohol use disorder Social History household members: family Smoking Status: Current some day smoker alcohol intake: current Discharge Plan Discharge Plan Patient Disposition: Left Against Medical Advice Discharge orders & Medications Prescriptions: Continued lorazepam 1 mg tablet 1 mg PO TID PRN (Reason: withdrawal symptoms) Qty: 14 0RF Follow up/Referrals: Doctor Rush, [Primary Care Provider] - Visit Report/Discharge Packet Stand Alone Forms: Patient Portal/API, Stroke Signs & Symptoms Discharge Data Primary Care Provider: Doctor Rush Discharges patient from system. Discharge Date/Time: 08/17/22 14:25
[2022-08-17 14:53] LABS: Appearance Urine UA CLEAR; Bilirubin Urine UA NEGATIVE (NEGATIVE); Color Urine UA YELLOW; Glucose Urine UA NEGATIVE (Negative); Ketones Urine UA 3+ (NEGATIVE); Leukocyte Esterase Urine UA NEGATIVE (NEGATIVE); Nitrite Urine UA NEGATIVE (Negative); Occult Blood Urine UA 1+ (Negative); Protein Urine UA 1+ (Negative); Specific Gravity Urine UA 1.025 (1.000-1.035); Urobilinogen Urine UA 0.2 E.U./dL (0.2)
[2022-08-17 15:26] LABS: Bacteria Urine Few (2-10); RBC Urine 5-10/HPF (0-5/HPF); WBC Urine 1-5/HPF (0-5/HPF)
[2022-08-17 15:27] LABS: Culture Indicated Urine Cult Not Indicated; Squamous Epithelial Cell Urine 1-5 /HPF (0-5/HPF)
--- NOTE | 2022-08-17 15:36 | PC.NURSE ---
Patient awakens from sleeping shortly after receiving 1 mg ativan for agitation/anxiety CIWA of 8. She is demanding to leave the hospital and attempts to take out her IV. MD notified, and environmental analyst at bedside reassuring patient. She agrees to sign AMA paperwork and is escorted via w/ch with all clothing and her purse.
== END 2022-08-17 14:25 | disposition left against medical advice (07) | DRG 770 ==
LOC: ED 08-17 06:57 → AC 08-17 10:54
PROVIDERS: Emergency Medicine; Admitting Provider Student in an Organized Health Care Education/Training Program; Emergency Provider Emergency Medicine; Referring Provider Emergency Medicine; Visit Provider Student in an Organized Health Care Education/Training Program
DX: F10.239 Alcohol dependence with withdrawal, unspecified (principal); F17.290 Nicotine dependence, other tobacco product, uncomplicated; Y90.8 Blood alcohol level of 240 mg/100 ml or more; Z20.822 Contact with and (suspected) exposure to COVID-19; Z53.29 Procedure and treatment not carried out because of patient's decision for other reasons; Z87.59 Personal history of other complications of pregnancy, childbirth and the puerperium; Z32.01 Encounter for pregnancy test, result positive
CPT/HCPCS: 36415; 76830; 76856; 80053; 80305; 80320; 81001; 83690; 83735; 84443; 84702; 84703; 85025; 86900; 86901; 99284; G0378; J1650; J2060; J2405; J2560